=== PATIENT | male | born 1955 | race Caucasian/White ===

== ENCOUNTER 2021-01-11 04:00 | Inpatient (IN) ==
[2021-01-11] MEDS ORDERED: DEXTROSE 50% 25 GM/50 ML VIAL IV PRN (09:00)
[2021-01-11] MEDS ORDERED: GLUCAGON 1 MG VIAL IM PRN (09:00)
[2021-01-12] MEDS ORDERED: VANCOMYCIN INJ 1,000 MG in SODIUM CHLORIDE 0.9% 250 ML IV ONE (05:00)
[2021-01-15] MEDS ORDERED: DEXTROSE 50% 25 GM/50 ML VIAL IV PRN (11:24)
[2021-01-15] MEDS ORDERED: GLUCAGON 1 MG VIAL IM PRN (11:24)
[2021-01-15] MEDS ORDERED: SODIUM CHLORIDE 0.9% 1,000 ML IV SCH (11:27)
[2021-01-15] MEDS ORDERED: NITROGLYCERIN SL 0.4 MG TABLET SL PRN (12:00)
[2021-01-15] MEDS ORDERED: CLORAZEPATE 3.75 MG TABLET PO PRN (12:00)
[2021-01-15] MEDS ORDERED: MORPHINE 2 MG/1 ML SYRINGE IV PRN (12:00)
[2021-01-15] MEDS: CHLORHEXIDINE 0.12% ORAL RINSE 60 ML BOTTLE SWISH/SPIT SCH ×2 (12:14→21:13)
[2021-01-15] MEDS: CHLORHEXIDINE 4% SOLN 118 ML BOTTLE TOP SCH ×4 (12:14→22:32)
[2021-01-15 12:32] LABS: Basophils # 0.1 10*3/uL (0.0-0.2); Basophils % 1.1 % (0.0-0.8); Eosinophils # 0.7 10*3/uL (0.0-0.87); Eosinophils % 7.9 % (0.00-10.9); Hematocrit 33.8 VOL% (42.0-52.0); Hemoglobin 10.7 GM/DL (14.0-18.0); Immature Granulocytes % 0.3 %; Immature Granulocytes Absolute 0.03 #; Lymphocytes # 2.2 10*3/uL (1.4-4.0); Lymphocytes % 23.5 % (21.2-54.2); Mean Corpuscular HGB Conc 31.7 GM/DL (32-36); Monocytes % 11.4 % (1.7-12.7); Neutrophils % 55.8 % (38.7-73.9); Platelet Count 262 T/CUMM (130-400); Red Blood Count 3.52 MC/CUMM (3.8-5.5); Red Cell Distribution Width 13.3 % (9.3-17.3); White Blood Count 9.2 T/CUMM (4-12)
[2021-01-15] MEDS: INSULIN REGULAR 100 UNIT/ML SUBCUT SCH ×3 (12:36→21:12)
[2021-01-15 12:50] LABS: Albumin 2.6 G/DL (3.4-5.0); Bilirubin,Total 0.9 MG/DL (0.20-1.00); Calcium 9.6 MG/DL (8.5-10.1); Osmolality,Calculated 288.5 MOS/KG (273-304); Potassium 4.6 MMOL/L (3.5-5.1); Total Protein 6.4 G/DL (6.4-8.2)
[2021-01-15 14:02] LABS: ABG Base Excess 9.3 MMOL/L (-2.5-2.5); ABG Oxygen Saturation 96.7 % (95-100); ABG PCO2 60.9 MM HG (35-48); ABG PH 7.387 (7.35-7.45); ABG PO2 90.3 MM HG (80-95); ABG TCO2 32.6 MMOL/L (23-27)
[2021-01-15] MEDS: SODIUM CHLORIDE 0.9% 1,000 ML IV SCH ×3 (14:22→16:25)
[2021-01-16] MEDS ORDERED: PAPAVERINE 60 MG/2 ML VIAL ONE (04:56)
[2021-01-16] MEDS ORDERED: VANCOMYCIN 500 MG VIAL ONE (04:57)
[2021-01-16] MEDS ORDERED: VANCOMYCIN 1,000 MG VIAL ONE (04:57)
[2021-01-16] MEDS ORDERED: VANCOMYCIN INJ 1,000 MG in SODIUM CHLORIDE 0.9% 250 ML IV ONE (05:00)
[2021-01-16] MEDS: CHLORHEXIDINE 0.12% ORAL RINSE 60 ML BOTTLE SWISH/SPIT SCH ×3 (05:50→21:37)
[2021-01-16] MEDS ORDERED: DIAZEPAM 5 MG TABLET PO ONE (06:00)
[2021-01-16] MEDS ORDERED: PANTOPRAZOLE 40 MG TABLET PO ONE (06:00)
[2021-01-16] MEDS ORDERED: ETOMIDATE 40 MG/20 ML VIAL IV ONE ×4 (06:05→09:45)
[2021-01-16] MEDS ORDERED: SUCCINYLCHOLINE 200 MG/10 ML VIAL ONE (06:05)
[2021-01-16] MEDS ORDERED: SUFentanil 250 MCG/5 ML AMP ONE ×3 (06:07→06:11)
[2021-01-16] MEDS ORDERED: MIDAZOLAM 10 MG/2 ML VIAL ONE ×4 (06:07→09:18)
[2021-01-16] MEDS ORDERED: VECURONIUM 10 MG VIAL IV ONE ×3 (06:13→09:19)
[2021-01-16 07:48] LABS: ABG Base Excess 7.2 MMOL/L (-2.5-2.5); ABG HCO3 31.1 MMOL/L (20-26); ABG PCO2 46.5 MM HG (35-48); ABG PH 7.448 (7.35-7.45); ABG TCO2 29.4 MMOL/L (23-27); Glucose Heart Surgery 150 MG/DL (74-106); Hematocrit Heart Surgery 29.6 PERCENT (42-52); Hemoglobin Heart Surgery 9.6 G/DL (14.0-18.0); Ionized Calcium Arterial 1.16 MMOL/L (1.21-1.46); PCO2 Patient Temp Arterial 46.5 MMHG; PH Patient Temp Arterial 7.448; Patient Temperature 37 CELCIUS; Potassium Heart/CVR 4.5 MMOL/L (3.5-5.1); Sodium Heart/CVR 141 MMOL/L (135-145)
[2021-01-16] MEDS ORDERED: SODIUM BICARBONATE 50 MEQ/50 ML VIAL IV ONE ×2 (07:59→10:31)
[2021-01-16] MEDS ORDERED: ALBUMIN 5% 25.0 GM/500 ML VIAL IV ONE (07:59)
[2021-01-16] MEDS ORDERED: NITROGLYCERIN DRIP 0 MG/0 ML BOTTLE IV ONE (07:59)
[2021-01-16] MEDS ORDERED: PHENYLEPHRINE DRIP 40 MG/250 ML PREMIX IV ONE (08:00)
[2021-01-16] MEDS ORDERED: NITROPRUSSIDE 50 MG/2 ML VIAL ONE (08:02)
[2021-01-16 08:37] LABS: Hematocrit Heart Surgery 19.6 PERCENT (42-52); PCO2 Patient Temp Venous 39.9 MM HG; PH Patient Temp Venous 7.492; PO2 Patient Temp Venous 31.6 MM HG; Potassium Heart/CVR 4.8 MMOL/L (3.5-5.1); VBG Base Excess 7.1 MEQ/L (0-4); VBG HCO3 30.7 MEQ/L (24-28); VBG Oxygen Saturation 76.1 %; VBG PCO2 46.1 MMHG (41-51); VBG PH 7.448; VBG Total CO2 30.4 MMOL/L
[2021-01-16 08:39] LABS: Hemoglobin Heart Surgery 6.2 G/DL (14.0-18.0)
[2021-01-16 09:09] LABS: Hematocrit Heart Surgery 22.4 PERCENT (42-52); Hemoglobin Heart Surgery 7.2 G/DL (14.0-18.0); PCO2 Patient Temp Venous 38.5 MM HG; PH Patient Temp Venous 7.511; PO2 Patient Temp Venous 31.3 MM HG; Potassium Heart/CVR 4.5 MMOL/L (3.5-5.1); VBG Base Excess 7.6 MEQ/L (0-4); VBG HCO3 31.1 MEQ/L (24-28); VBG PCO2 44.5 MMHG (41-51); VBG PH 7.466; VBG PO2 38.6 MMHG (17-40); VBG Total CO2 30.3 MMOL/L
[2021-01-16] MEDS ORDERED: CALCIUM CHLORIDE 1,000 MG/10 ML VIAL IV ONE (09:18)
[2021-01-16 09:35] LABS: Hematocrit Heart Surgery 23.1 PERCENT (42-52); Hemoglobin Heart Surgery 7.4 G/DL (14.0-18.0); PCO2 Patient Temp Venous 40.6 MM HG; PH Patient Temp Venous 7.481; PO2 Patient Temp Venous 33.6 MM HG; Potassium Heart/CVR 4.7 MMOL/L (3.5-5.1); VBG Base Excess 6.3 MEQ/L (0-4); VBG HCO3 29.8 MEQ/L (24-28); VBG Oxygen Saturation 69.4 %; VBG PCO2 40.6 MMHG (41-51); VBG PH 7.481; VBG PO2 33.6 MMHG (17-40); VBG Total CO2 28.6 MMOL/L
[2021-01-16] MEDS ORDERED: PHENYLEPHRINE DRIP 20 MG/250 ML PREMIX IV ONE ×2 (09:46→10:07)
[2021-01-16] MEDS ORDERED: SODIUM CHLORIDE 0.9% 1,000 ML IV ONE (09:46)
[2021-01-16] MEDS ORDERED: HEPARIN/NACL 0.9% 2 UNITS/ML 1,000 UNIT/500 ML BAG IV ONE (09:46)
[2021-01-16] MEDS ORDERED: LACTATED RINGERS 1,000 ML IV ONE (09:46)
[2021-01-16] MEDS ORDERED: SODIUM CHLORIDE 0.9% 200 ML IV ONE (09:46)
[2021-01-16 10:07] LABS: Hematocrit Heart Surgery 28.6 PERCENT (42-52); Hemoglobin Heart Surgery 9.2 G/DL (14.0-18.0); PCO2 Patient Temp Venous 38.4 MM HG; PH Patient Temp Venous 7.483; PO2 Patient Temp Venous 35.3 MM HG; Potassium Heart/CVR 4.6 MMOL/L (3.5-5.1); VBG Base Excess 5.1 MEQ/L (0-4); VBG HCO3 28.6 MEQ/L (24-28); VBG Oxygen Saturation 73.4 %; VBG PCO2 38.4 MMHG (41-51); VBG PH 7.483; VBG PO2 35.3 MMHG (17-40); VBG Total CO2 26.5 MMOL/L
[2021-01-16] MEDS ORDERED: ALBUMIN 25% 25 GM/100 ML VIAL IV ONE (10:29)
[2021-01-16] MEDS ORDERED: LIDOCAINE 2% 5 ML VIAL ONE (10:29)
[2021-01-16] MEDS ORDERED: HEPARIN 10,000 UNIT/10 ML VIAL ONE (10:30)
[2021-01-16] MEDS ORDERED: methylPREDNISolone SOD SUC 1,000 MG/8 ML VIAL ONE (10:30)
[2021-01-16] MEDS ORDERED: MAGNESIUM SULFATE 5 GM/10 ML VIAL IV ONE (10:30)
[2021-01-16] MEDS ORDERED: MANNITOL 12.5 GM/50 ML VIAL IV ONE (10:30)
[2021-01-16] MEDS ORDERED: DEXTROSE 5% KCL 20 MEQ 20 MEQ/1,000 ML BAG IV ONE (10:30)
[2021-01-16] MEDS ORDERED: PROTAMINE SULFATE 250 MG/25 ML VIAL IV ONE ×2 (10:30→12:00)
[2021-01-16] MEDS ORDERED: FUROSEMIDE 20 MG/2 ML VIAL ONE (10:31)
[2021-01-16 10:40] LABS: ABG Base Excess 3.2 MMOL/L (-2.5-2.5); ABG HCO3 26.4 MMOL/L (20-26); ABG Oxygen Saturation 98.9 % (95-100); ABG PCO2 34.8 MM HG (35-48); ABG PH 7.498 (7.35-7.45); ABG PO2 458.8 MM HG (80-95); ABG TCO2 27.5 MMOL/L (23-27); Glucose Heart Surgery 228 MG/DL (74-106); Hemoglobin Heart Surgery 9.6 G/DL (14.0-18.0); Ionized Calcium Arterial 1.12 MMOL/L (1.21-1.46); PCO2 Patient Temp Arterial 34.8 MMHG; PH Patient Temp Arterial 7.498; PO2 Patient Temp Arterial 458.8 MM HG; Patient Temperature 37 CELCIUS; Potassium Heart/CVR 3.9 MMOL/L (3.5-5.1); Sodium Heart/CVR 133 MMOL/L (135-145)
[2021-01-16] MEDS ORDERED: NITROPRUSSIDE 100 MG in DEXTROSE 5% 250 ML IV PRN (10:58)
[2021-01-16] MEDS ORDERED: MIDAZOLAM 10 MG/2 ML VIAL IV PRN (10:58)
[2021-01-16] MEDS ORDERED: POTASSIUM CHLORIDE RIDER 20 MEQ/100 ML PREMIX IV PRN (10:58)
[2021-01-16] MEDS ORDERED: VECURONIUM 10 MG VIAL IV PRN ×2 (10:58)
[2021-01-16] MEDS ORDERED: CALCIUM CHLORIDE 1,000 MG/10 ML SYRINGE IV PRN (10:58)
[2021-01-16] MEDS ORDERED: THROMBIN TOPICAL (RECOMBINANT) 5,000 UNIT VIAL TOP ONE (10:58)
[2021-01-16] MEDS ORDERED: ACETAMINOPHEN 650 MG SUPP RECTAL PRN (10:58)
[2021-01-16] MEDS ORDERED: MIDAZOLAM 2 MG/2 ML VIAL IV PRN (10:58)
[2021-01-16] MEDS ORDERED: DEXTROSE 50% 25 GM/50 ML VIAL IV PRN ×2 (10:58)
[2021-01-16] MEDS ORDERED: POTASSIUM CHLORIDE RIDER 10 MEQ/100 ML PREMIX IV PRN (10:58)
[2021-01-16] MEDS ORDERED: INSULIN REGULAR 100 UNIT/ML IV ONE (10:58)
[2021-01-16] MEDS ORDERED: MAGNESIUM SULF RIDER 2 GM/50 ML PREMIX IV PRN (10:58)
[2021-01-16] MEDS ORDERED: CHLORHEXIDINE 4% SOLN 118 ML BOTTLE TOP PRN (10:58)
[2021-01-16] MEDS ORDERED: MAGNESIUM SULF RIDER 4 GM/100 ML PREMIX IV PRN (10:58)
[2021-01-16] MEDS: LACTATED RINGERS 250 ML IV PRN ×3 (11:31→14:16)
[2021-01-16] MEDS: PHENYLEPHRINE DRIP 40 MG/250 ML PREMIX IV PRN (11:31)
[2021-01-16] MEDS: SODIUM CHLORIDE 0.45% 1,000 ML IV SCH ×2 (11:31)
[2021-01-16] MEDS ORDERED: PROTAMINE SULFATE 50 MG/5 ML VIAL IV ONE (11:39)
[2021-01-16] MEDS ORDERED: SEVOFLURANE 1 UNIT/15 MINUTE INH ONE (11:43)
[2021-01-16 12:06] LABS: ABG Base Excess 2.7 MMOL/L (-2.5-2.5); ABG HCO3 26.9 MMOL/L (20-26); ABG Oxygen Saturation 98.6 % (95-100); ABG PH 7.394 (7.35-7.45); ABG TCO2 25.7 MMOL/L (23-27); Glucose Heart Surgery 231 MG/DL (74-106); Hematocrit Heart Surgery 29.9 PERCENT (42-52); Hemoglobin Heart Surgery 9.7 G/DL (14.0-18.0)
[2021-01-16 12:07] LABS: Basophils # 0.1 10*3/uL (0.0-0.2); Basophils % 0.5 % (0.0-0.8); Eosinophils # 0.1 10*3/uL (0.0-0.87); Eosinophils % 0.9 % (0.00-10.9); Hematocrit 29.1 VOL% (42.0-52.0); Hemoglobin 9.2 GM/DL (14.0-18.0); Immature Granulocytes % 0.7 %; Lymphocytes # 1.4 10*3/uL (1.4-4.0); Lymphocytes % 9.4 % (21.2-54.2); Mean Corpuscular HGB Conc 31.6 GM/DL (32-36); Mean Corpuscular Volume 93.6 FL (87-102); Monocytes % 7.6 % (1.7-12.7); Neutrophils % 80.9 % (38.7-73.9); Platelet Count 231 T/CUMM (130-400); Red Blood Count 3.11 MC/CUMM (3.8-5.5); Red Cell Distribution Width 14.8 % (9.3-17.3); White Blood Count 15.3 T/CUMM (4-12)
[2021-01-16 12:34] LABS: Atypical Lymphocytes Few; Band Neutrophils 2 % (0-10); Lymphocytes 13 % (20-55); Platelet Estimate Normal; Polychromasia Slight; Segmented Neutrophils 83 % (50-85); Total Cells Counted 100
[2021-01-16 12:35] LABS: CKMB % 6.9 %
[2021-01-16 12:41] LABS: High Sensitive Troponin I* 5628.8 ng/L (0-78)
[2021-01-16 12:45] LABS: INR 1.1; PT Patient Result 11.9 SECS (10.5-12.0); Partial Thromboplastin Time 26.6 SECS (23.8-32.1)
[2021-01-16 12:50] LABS: Albumin 2.3 G/DL (3.4-5.0); Bilirubin,Total 0.7 MG/DL (0.20-1.00); Calcium 8.1 MG/DL (8.5-10.1); Osmolality,Calculated 293.5 MOS/KG (273-304); Potassium 4.1 MMOL/L (3.5-5.1); Total Protein 4.5 G/DL (6.4-8.2)
[2021-01-16] MEDS: INSULIN REGULAR 100 UNIT/ML SUBCUT SCH (12:52)
[2021-01-16] MEDS: INSULIN REGULAR DRIP 100 ML IV SCH ×2 (13:17→20:18)
[2021-01-16 14:31] LABS: ABG Base Excess 3.7 MMOL/L (-2.5-2.5); ABG HCO3 29.4 MMOL/L (20-26); ABG Oxygen Saturation 97.1 % (95-100); ABG PH 7.387 (7.35-7.45); ABG PO2 100.8 MM HG (80-95); ABG TCO2 30.9 MMOL/L (23-27); Glucose Heart Surgery 199 MG/DL (74-106); Hemoglobin Heart Surgery 10.1 G/DL (14.0-18.0); Potassium Heart/CVR 5.2 MMOL/L (3.5-5.1)
[2021-01-16] MEDS ORDERED: FUROSEMIDE 40 MG/4 ML VIAL IV ONE (14:39)
[2021-01-16] MEDS: INSULIN REGULAR 100 UNIT/ML IV PRN ×2 (15:08→18:01)
[2021-01-16] MEDS: SODIUM CHLORIDE 0.9% 250 ML IV PRN ×3 (15:23→18:24)
[2021-01-16 15:48] LABS: ABG HCO3 26.2 MMOL/L (20-26); ABG Oxygen Saturation 98.6 % (95-100); ABG PH 7.413 (7.35-7.45); ABG TCO2 24.4 MMOL/L (23-27); Glucose Heart Surgery 227 MG/DL (74-106); Hematocrit Heart Surgery 30.7 PERCENT (42-52); Hemoglobin Heart Surgery 9.9 G/DL (14.0-18.0); Potassium Heart/CVR 3.9 MMOL/L (3.5-5.1)
[2021-01-16] MEDS: FUROSEMIDE INJ 100 MG in SODIUM CHLORIDE 0.9% 90 ML IV SCH ×2 (16:05→20:19)
[2021-01-16] MEDS: ALBUMIN 5% 12.5 GM/250 ML VIAL IV PRN ×2 (16:28→16:51)
[2021-01-16] MEDS: MORPHINE 10 MG/1 ML VIAL IV PRN (17:35)
[2021-01-16 19:09] LABS: ABG HCO3 25.3 MMOL/L (20-26); ABG Oxygen Saturation 98.3 % (95-100); ABG PCO2 45.4 MM HG (35-48); ABG PH 7.374 (7.35-7.45); ABG TCO2 24.5 MMOL/L (23-27); Glucose Heart Surgery 146 MG/DL (74-106); Hematocrit Heart Surgery 27.3 PERCENT (42-52); Hemoglobin Heart Surgery 8.8 G/DL (14.0-18.0); Potassium Heart/CVR 3.9 MMOL/L (3.5-5.1)
[2021-01-16] MEDS: DEXMEDETOMIDINE 200 MCG in SODIUM CHLORIDE 0.9% 48 ML IV PRN (19:20)
[2021-01-16 19:50] LABS: CKMB % 6.9 %
[2021-01-16 19:54] LABS: High Sensitive Troponin I* 19285.6 ng/L (0-78)
[2021-01-16] MEDS ORDERED: SODIUM CHLORIDE 0.9% 1,000 ML IV PRN (19:54)
[2021-01-16] MEDS: VANCOMYCIN INJ 1,000 MG in SODIUM CHLORIDE 0.9% 250 ML IV SCH (21:38)
[2021-01-17 00:21] LABS: ABG Base Excess 1.6 MMOL/L (-2.5-2.5); ABG HCO3 25.6 MMOL/L (20-26); ABG Oxygen Saturation 97.9 % (95-100); ABG PCO2 37.9 MM HG (35-48); ABG PH 7.448 (7.35-7.45); ABG PO2 115.5 MM HG (80-95); ABG TCO2 26.8 MMOL/L (23-27); Glucose Heart Surgery 81 MG/DL (74-106); Hemoglobin Heart Surgery 10.4 G/DL (14.0-18.0); Potassium Heart/CVR 4.4 MMOL/L (3.5-5.1)
[2021-01-17] MEDS: PHENYLEPHRINE DRIP 40 MG/250 ML PREMIX IV PRN ×2 (00:23→16:24)
[2021-01-17] MEDS: DEXMEDETOMIDINE 200 MCG in SODIUM CHLORIDE 0.9% 48 ML IV PRN ×2 (00:24→11:47)
[2021-01-17 01:13] LABS: ABG Base Excess 1.2 MMOL/L (-2.5-2.5); ABG HCO3 25.9 MMOL/L (20-26); ABG Oxygen Saturation 97.8 % (95-100); ABG PCO2 41.7 MM HG (35-48); ABG PH 7.411 (7.35-7.45); ABG TCO2 27.2 MMOL/L (23-27); Glucose Heart Surgery 93 MG/DL (74-106); Hemoglobin Heart Surgery 10.5 G/DL (14.0-18.0); Potassium Heart/CVR 4.4 MMOL/L (3.5-5.1)
[2021-01-17] MEDS: FUROSEMIDE INJ 100 MG in SODIUM CHLORIDE 0.9% 90 ML IV SCH ×5 (01:51→23:00)
[2021-01-17 04:14] LABS: ABG Base Excess 1.7 MMOL/L (-2.5-2.5); ABG Oxygen Saturation 98.9 % (95-100); ABG PCO2 46.4 MM HG (35-48); ABG PH 7.378 (7.35-7.45); ABG TCO2 24.9 MMOL/L (23-27); Glucose Heart Surgery 115 MG/DL (74-106); Hematocrit Heart Surgery 31.2 PERCENT (42-52); Hemoglobin Heart Surgery 10.1 G/DL (14.0-18.0); Potassium Heart/CVR 4.6 MMOL/L (3.5-5.1)
[2021-01-17 04:15] LABS: Basophils % 0.2 % (0.0-0.8); Hematocrit 31.8 VOL% (42.0-52.0); Hemoglobin 10.3 GM/DL (14.0-18.0); Immature Granulocytes % 0.6 %; Immature Granulocytes Absolute 0.12 #; Lymphocytes # 1.7 10*3/uL (1.4-4.0); Lymphocytes % 8.9 % (21.2-54.2); Mean Corpuscular HGB Conc 32.4 GM/DL (32-36); Mean Corpuscular Volume 92.4 FL (87-102); Mean Platelet Volume 11.1 FL (9.6-12.0); Monocytes % 8.9 % (1.7-12.7); Neutrophils % 81.4 % (38.7-73.9); Platelet Count 223 T/CUMM (130-400); Red Blood Count 3.44 MC/CUMM (3.8-5.5); Red Cell Distribution Width 15.6 % (9.3-17.3); White Blood Count 19.4 T/CUMM (4-12)
[2021-01-17] MEDS: MORPHINE 10 MG/1 ML VIAL IV PRN (04:18)
[2021-01-17 04:36] LABS: Hypochromasia Slight; Lymphocytes 6 % (20-55); Microcytosis Slight; Platelet Estimate Adequate; Segmented Neutrophils 83 % (50-85); Total Cells Counted 100
[2021-01-17 04:56] LABS: CKMB % 7.8 %
[2021-01-17 04:58] LABS: High Sensitive Troponin I* 67427.8 ng/L (0-78)
[2021-01-17 05:03] LABS: Alanine Aminotransferase 116 U/L (16-61); Albumin 2.8 G/DL (3.4-5.0); Alkaline Phosphatase 99 U/L (45-117); Aspartate Amino Transferase 340 U/L (0-37); Bilirubin,Total < 0.39 MG/DL (0.20-1.00); Blood Urea Nitrogen 44 MG/DL (7-18); Calcium 8.2 MG/DL (8.5-10.1); Carbon Dioxide 26 MMOL/L (21-32); Estimated Glom Filtration Rate 38 ML/MIN; Glucose 105 MG/DL (74-106); Osmolality,Calculated 291.3 MOS/KG (273-304); Potassium 4.7 MMOL/L (3.5-5.1); Sodium 141 MMOL/L (136-145); Total Protein 5.1 G/DL (6.4-8.2)
[2021-01-17 06:25] LABS: ABG Base Excess 0.9 MMOL/L (-2.5-2.5); ABG HCO3 25.3 MMOL/L (20-26); ABG Oxygen Saturation 98.5 % (95-100); ABG PCO2 50.6 MM HG (35-48); ABG PH 7.341 (7.35-7.45); ABG TCO2 24.9 MMOL/L (23-27); Glucose Heart Surgery 110 MG/DL (74-106); Hematocrit Heart Surgery 32.4 PERCENT (42-52); Hemoglobin Heart Surgery 10.5 G/DL (14.0-18.0); Potassium Heart/CVR 4.6 MMOL/L (3.5-5.1)
[2021-01-17 07:09] LABS: ABG Base Excess 0.9 MMOL/L (-2.5-2.5); ABG HCO3 25.3 MMOL/L (20-26); ABG PCO2 51.1 MM HG (35-48); ABG PH 7.338 (7.35-7.45); Glucose Heart Surgery 108 MG/DL (74-106); Hematocrit Heart Surgery 31.9 PERCENT (42-52); Hemoglobin Heart Surgery 10.3 G/DL (14.0-18.0); Potassium Heart/CVR 4.5 MMOL/L (3.5-5.1)
[2021-01-17] MEDS ORDERED: ASPIRIN CHEW 81 MG TABLET PO ONE (09:00)
[2021-01-17] MEDS: ALBUTEROL/IPRATROPIUM 3 ML NEB RESP TX SCH ×3 (09:25→19:22)
[2021-01-17] MEDS: GABAPENTIN 600 MG TABLET PO SCH ×2 (10:04→20:38)
[2021-01-17] MEDS: CHLORHEXIDINE 0.12% ORAL RINSE 60 ML BOTTLE SWISH/SPIT SCH ×2 (10:05→20:39)
[2021-01-17] MEDS: VANCOMYCIN INJ 1,000 MG in SODIUM CHLORIDE 0.9% 250 ML IV SCH ×2 (10:11→22:29)
[2021-01-17 11:21] LABS: ABG Base Excess -0.7 MMOL/L (-2.5-2.5); ABG HCO3 25.4 MMOL/L (20-26); ABG Oxygen Saturation 97.6 % (95-100); ABG PCO2 48.5 MM HG (35-48); ABG PH 7.337 (7.35-7.45); ABG PO2 112.2 MM HG (80-95); ABG TCO2 26.9 MMOL/L (23-27); Glucose Heart Surgery 97 MG/DL (74-106); Hemoglobin Heart Surgery 10.5 G/DL (14.0-18.0); Potassium Heart/CVR 4.3 MMOL/L (3.5-5.1)
[2021-01-17] MEDS ORDERED: GLUCAGON 1 MG VIAL IM PRN (11:27)
[2021-01-17 12:03] LABS: CKMB % 7.9 %
[2021-01-17 12:05] LABS: High Sensitive Troponin I* 63987.4 ng/L (0-78)
[2021-01-17 13:13] LABS: ABG Base Excess 0.7 MMOL/L (-2.5-2.5); ABG HCO3 25.1 MMOL/L (20-26); ABG Oxygen Saturation 99.2 % (95-100); ABG PH 7.441 (7.35-7.45); ABG TCO2 22.2 MMOL/L (23-27)
[2021-01-17 14:09] LABS: ABG Base Excess -0.3 MMOL/L (-2.5-2.5); ABG HCO3 24.2 MMOL/L (20-26); ABG Oxygen Saturation 97.8 % (95-100); ABG PCO2 46.1 MM HG (35-48); ABG PH 7.352 (7.35-7.45); ABG TCO2 23.3 MMOL/L (23-27)
[2021-01-17] MEDS: SODIUM CHLORIDE 0.45% 1,000 ML IV SCH ×2 (14:30→16:24)
[2021-01-17] MEDS: INSULIN REGULAR DRIP 100 ML IV SCH (14:32)
[2021-01-17 15:57] LABS: ABG Base Excess -0.3 MMOL/L (-2.5-2.5); ABG HCO3 24.2 MMOL/L (20-26); ABG PCO2 48.8 MM HG (35-48); ABG PH 7.334 (7.35-7.45); ABG PO2 86.4 MM HG (80-95); ABG TCO2 23.9 MMOL/L (23-27); Glucose Heart Surgery 155 MG/DL (74-106); Hematocrit Heart Surgery 29.9 PERCENT (42-52); Hemoglobin Heart Surgery 9.7 G/DL (14.0-18.0); Potassium Heart/CVR 4.5 MMOL/L (3.5-5.1)
[2021-01-17] MEDS: INSULIN LISPRO 100 UNIT/ML SUBCUT SCH ×3 (16:17→21:54)
[2021-01-17 17:20] LABS: ABG Base Excess -0.1 MMOL/L (-2.5-2.5); ABG HCO3 24.3 MMOL/L (20-26); ABG Oxygen Saturation 94.9 % (95-100); ABG PCO2 47.3 MM HG (35-48); ABG PH 7.347 (7.35-7.45); ABG PO2 77.5 MM HG (80-95); ABG TCO2 23.8 MMOL/L (23-27)
[2021-01-17] MEDS ORDERED: MORPHINE 2 MG/1 ML SYRINGE IV PRN ×2 (18:26→18:40)
[2021-01-17 19:35] LABS: ABG Base Excess -0.2 MMOL/L (-2.5-2.5); ABG HCO3 24.2 MMOL/L (20-26); ABG Oxygen Saturation 96.3 % (95-100); ABG PCO2 44.2 MM HG (35-48); ABG PH 7.366 (7.35-7.45); ABG PO2 85.3 MM HG (80-95); ABG TCO2 23.2 MMOL/L (23-27); Glucose Heart Surgery 189 MG/DL (74-106); Hematocrit Heart Surgery 30.2 PERCENT (42-52); Hemoglobin Heart Surgery 9.7 G/DL (14.0-18.0); Potassium Heart/CVR 4.5 MMOL/L (3.5-5.1)
[2021-01-17] MEDS: PREGABALIN 75 MG CAPSULE PO SCH (20:38)
[2021-01-17 23:35] LABS: ABG Base Excess -0.4 MMOL/L (-2.5-2.5); ABG Oxygen Saturation 97.1 % (95-100); ABG PCO2 44.9 MM HG (35-48); ABG PH 7.358 (7.35-7.45); ABG PO2 94.2 MM HG (80-95); ABG TCO2 23.1 MMOL/L (23-27); Glucose Heart Surgery 211 MG/DL (74-106); Hematocrit Heart Surgery 30.2 PERCENT (42-52); Hemoglobin Heart Surgery 9.8 G/DL (14.0-18.0); Potassium Heart/CVR 4.6 MMOL/L (3.5-5.1)
[2021-01-18] MEDS: ALBUTEROL/IPRATROPIUM 3 ML NEB RESP TX SCH ×4 (00:14→18:30)
[2021-01-18] MEDS: INSULIN LISPRO 100 UNIT/ML SUBCUT SCH ×7 (02:11→20:18)
[2021-01-18] MEDS: FUROSEMIDE INJ 100 MG in SODIUM CHLORIDE 0.9% 90 ML IV SCH ×2 (03:45→22:43)
[2021-01-18 04:00] LABS: ABG Base Excess -0.3 MMOL/L (-2.5-2.5); ABG HCO3 24.2 MMOL/L (20-26); ABG Oxygen Saturation 97.4 % (95-100); ABG PCO2 42.1 MM HG (35-48); ABG PH 7.379 (7.35-7.45); ABG PO2 92.8 MM HG (80-95); ABG TCO2 22.8 MMOL/L (23-27); Glucose Heart Surgery 202 MG/DL (74-106); Hematocrit Heart Surgery 29.6 PERCENT (42-52); Hemoglobin Heart Surgery 9.6 G/DL (14.0-18.0); Potassium Heart/CVR 4.6 MMOL/L (3.5-5.1)
[2021-01-18 04:05] LABS: Basophils % 0.3 % (0.0-0.8); Hematocrit 30.2 VOL% (42.0-52.0); Hemoglobin 9.5 GM/DL (14.0-18.0); Immature Granulocytes % 0.3 %; Immature Granulocytes Absolute 0.04 #; Lymphocytes # 1.2 10*3/uL (1.4-4.0); Lymphocytes % 10.1 % (21.2-54.2); Mean Corpuscular HGB Conc 31.5 GM/DL (32-36); Mean Corpuscular Volume 95.3 FL (87-102); Mean Platelet Volume 11.4 FL (9.6-12.0); Monocytes % 9.4 % (1.7-12.7); Neutrophils % 79.9 % (38.7-73.9); Platelet Count 159 T/CUMM (130-400); Red Blood Count 3.17 MC/CUMM (3.8-5.5); Red Cell Distribution Width 15.1 % (9.3-17.3)
[2021-01-18 04:35] LABS: Albumin 2.5 G/DL (3.4-5.0); Bilirubin,Direct 0.12 MG/DL (0.0-0.20); Bilirubin,Total 0.8 MG/DL (0.20-1.00); Calcium 8.2 MG/DL (8.5-10.1); Osmolality,Calculated 300.4 MOS/KG (273-304); Potassium 4.7 MMOL/L (3.5-5.1); Total Protein 5.9 G/DL (6.4-8.2)
[2021-01-18] MEDS: ALBUMIN 5% 12.5 GM/250 ML VIAL IV PRN ×4 (06:15→20:32)
[2021-01-18] MEDS: FUROSEMIDE 40 MG/4 ML VIAL IV SCH ×2 (07:45→17:12)
[2021-01-18] MEDS ORDERED: METOPROLOL SUCCINATE XL 50 MG TABLET PO SCH (09:30)
[2021-01-18] MEDS: GABAPENTIN 600 MG TABLET PO SCH ×3 (09:32→21:17)
[2021-01-18] MEDS: CHLORHEXIDINE 0.12% ORAL RINSE 60 ML BOTTLE SWISH/SPIT SCH ×2 (09:32→20:23)
[2021-01-18] MEDS: ASPIRIN EC 325 MG TABLET PO SCH (11:07)
[2021-01-18] MEDS: VANCOMYCIN INJ 1,000 MG in SODIUM CHLORIDE 0.9% 250 ML IV SCH (11:07)
[2021-01-18] MEDS: SODIUM CHLORIDE 0.45% 1,000 ML IV SCH (12:13)
[2021-01-18 16:31] LABS: ABG Base Excess 0.1 MMOL/L (-2.5-2.5); ABG HCO3 24.4 MMOL/L (20-26); ABG Oxygen Saturation 93.9 % (95-100); ABG PCO2 38.3 MM HG (35-48); ABG PH 7.422 (7.35-7.45); ABG PO2 68.2 MM HG (80-95); ABG TCO2 25.6 MMOL/L (23-27)
[2021-01-18] MEDS ORDERED: traMADol 50 MG TABLET PO PRN (17:13)
[2021-01-18] MEDS ORDERED: ACETAMINOPHEN 325 MG TABLET ONE (18:01)
[2021-01-18] MEDS: ACETAMINOPHEN 325 MG TABLET PO PRN (18:34)
[2021-01-18] MEDS: PHENYLEPHRINE DRIP 40 MG/250 ML PREMIX IV PRN (20:02)
[2021-01-18] MEDS: PREGABALIN 75 MG CAPSULE PO SCH ×2 (20:21→21:17)
[2021-01-18] MEDS ORDERED: ATROPINE 1 MG/10 ML SYRINGE ONE (20:44)
[2021-01-18] MEDS ORDERED: EPINEPHrine 1 MG/ML VIAL ONE (20:50)
[2021-01-18 20:56] LABS: Basophils # 0.1 10*3/uL (0.0-0.2); Basophils % 0.5 % (0.0-0.8); Hematocrit 29.2 VOL% (42.0-52.0); Hemoglobin 8.9 GM/DL (14.0-18.0); Immature Granulocytes % 0.6 %; Immature Granulocytes Absolute 0.06 #; Lymphocytes # 1.1 10*3/uL (1.4-4.0); Lymphocytes % 11.1 % (21.2-54.2); Mean Corpuscular HGB Conc 30.5 GM/DL (32-36); Mean Platelet Volume 11.7 FL (9.6-12.0); Monocytes % 7.9 % (1.7-12.7); Neutrophils % 79.9 % (38.7-73.9); Platelet Count 150 T/CUMM (130-400); Red Blood Count 2.98 MC/CUMM (3.8-5.5); Red Cell Distribution Width 14.6 % (9.3-17.3); White Blood Count 10.2 T/CUMM (4-12)
[2021-01-18 21:12] LABS: ABG Base Excess -4.2 MMOL/L (-2.5-2.5); ABG HCO3 20.9 MMOL/L (20-26); ABG PCO2 32.5 MM HG (35-48); ABG PH 7.395 (7.35-7.45); ABG TCO2 18.2 MMOL/L (23-27)
[2021-01-18 21:18] LABS: Calcium 8.1 MG/DL (8.5-10.1); Osmolality,Calculated 305.5 MOS/KG (273-304); Potassium 4.8 MMOL/L (3.5-5.1)
[2021-01-19] MEDS: ALBUTEROL/IPRATROPIUM 3 ML NEB RESP TX SCH ×4 (00:35→19:42)
[2021-01-19] MEDS: ACETAMINOPHEN 325 MG TABLET PO PRN (03:05)
[2021-01-19] MEDS: FUROSEMIDE INJ 100 MG in SODIUM CHLORIDE 0.9% 90 ML IV SCH ×4 (03:28→19:41)
[2021-01-19 04:04] LABS: Basophils % 0.3 % (0.0-0.8); Eosinophils % 0.1 % (0.00-10.9); Hematocrit 28.2 VOL% (42.0-52.0); Hemoglobin 8.5 GM/DL (14.0-18.0); Immature Granulocytes % 0.7 %; Immature Granulocytes Absolute 0.09 #; Lymphocytes # 1.1 10*3/uL (1.4-4.0); Mean Corpuscular HGB Conc 30.1 GM/DL (32-36); Mean Corpuscular Volume 96.2 FL (87-102); Mean Platelet Volume 11.7 FL (9.6-12.0); Monocytes % 10.5 % (1.7-12.7); Neutrophils % 79.4 % (38.7-73.9); Platelet Count 157 T/CUMM (130-400); Red Blood Count 2.93 MC/CUMM (3.8-5.5); Red Cell Distribution Width 14.5 % (9.3-17.3); White Blood Count 12.2 T/CUMM (4-12)
[2021-01-19 04:26] LABS: Albumin 2.8 G/DL (3.4-5.0); Bilirubin,Direct 0.23 MG/DL (0.0-0.20); Bilirubin,Total 0.5 MG/DL (0.20-1.00); Calcium 8.1 MG/DL (8.5-10.1); Osmolality,Calculated 302.8 MOS/KG (273-304); Potassium 4.5 MMOL/L (3.5-5.1); Total Protein 5.9 G/DL (6.4-8.2)
[2021-01-19] MEDS: FUROSEMIDE 40 MG/4 ML VIAL IV SCH (08:38)
[2021-01-19] MEDS: ONDANSETRON 4 MG/2 ML VIAL IV PRN (09:05)
[2021-01-19] MEDS: INSULIN LISPRO 100 UNIT/ML SUBCUT SCH ×4 (09:13→21:11)
[2021-01-19] MEDS: ASPIRIN EC 325 MG TABLET PO SCH (09:13)
[2021-01-19] MEDS: GABAPENTIN 600 MG TABLET PO SCH ×2 (09:14→20:16)
[2021-01-19] MEDS: CHLORHEXIDINE 0.12% ORAL RINSE 60 ML BOTTLE SWISH/SPIT SCH ×2 (09:14→20:16)
[2021-01-19] MEDS ORDERED: PROMETHAZINE 25 MG/1 ML VIAL IM ONE (12:08)
[2021-01-19] MEDS ORDERED: METOCLOPRAMIDE 10 MG/2 ML VIAL IV ONE (12:08)
[2021-01-19] MEDS: SODIUM CHLORIDE 0.45% 1,000 ML IV SCH (14:16)
[2021-01-19] MEDS ORDERED: AMIODARONE INJ 150 MG in DEXTROSE 5% 100 ML IV ONE (22:08)
[2021-01-19] MEDS ORDERED: AMIODARONE INJ 450 MG in DEXTROSE 5% 241 ML IV SCH (22:30)
[2021-01-20] MEDS: ACETAMINOPHEN 325 MG TABLET PO PRN ×4 (00:27→21:42)
[2021-01-20] MEDS: ALBUTEROL/IPRATROPIUM 3 ML NEB RESP TX SCH ×4 (00:41→19:20)
[2021-01-20] MEDS: FUROSEMIDE INJ 100 MG in SODIUM CHLORIDE 0.9% 90 ML IV SCH ×4 (00:43→21:43)
[2021-01-20 03:02] LABS: Basophils % 0.3 % (0.0-0.8); Eosinophils % 0.2 % (0.00-10.9); Hematocrit 28.6 VOL% (42.0-52.0); Hemoglobin 8.6 GM/DL (14.0-18.0); Immature Granulocytes % 0.4 %; Immature Granulocytes Absolute 0.05 #; Lymphocytes # 1.1 10*3/uL (1.4-4.0); Lymphocytes % 9.6 % (21.2-54.2); Mean Corpuscular HGB Conc 30.1 GM/DL (32-36); Mean Corpuscular Volume 96.6 FL (87-102); Mean Platelet Volume 11.7 FL (9.6-12.0); Monocytes % 11.4 % (1.7-12.7); Neutrophils % 78.1 % (38.7-73.9); Platelet Count 173 T/CUMM (130-400); Red Blood Count 2.96 MC/CUMM (3.8-5.5); White Blood Count 11.7 T/CUMM (4-12)
[2021-01-20 03:20] LABS: Calcium 8.3 MG/DL (8.5-10.1); Osmolality,Calculated 304.8 MOS/KG (273-304); Potassium 4.3 MMOL/L (3.5-5.1)
[2021-01-20] MEDS: AMIODARONE INJ 450 MG in DEXTROSE 5% 241 ML IV SCH ×2 (06:22→23:13)
[2021-01-20] MEDS: INSULIN LISPRO 100 UNIT/ML SUBCUT SCH ×4 (08:30→20:13)
[2021-01-20] MEDS: GABAPENTIN 600 MG TABLET PO SCH ×2 (08:42→20:13)
[2021-01-20] MEDS: ASPIRIN EC 325 MG TABLET PO SCH (08:42)
[2021-01-20] MEDS: CHLORHEXIDINE 0.12% ORAL RINSE 60 ML BOTTLE SWISH/SPIT SCH ×2 (08:42→20:13)
[2021-01-20] MEDS ORDERED: ALBUMIN 5% 25 GM/500 ML VIAL IV ONE (11:37)
[2021-01-20] MEDS: ONDANSETRON 4 MG/2 ML VIAL IV PRN (12:00)
[2021-01-20] MEDS: PHENYLEPHRINE DRIP 40 MG/250 ML PREMIX IV PRN (12:10)
[2021-01-20] MEDS: SODIUM CHLORIDE 0.45% 1,000 ML IV SCH (12:56)
[2021-01-20] MEDS ORDERED: EPINEPHrine 1 MG/10 ML SYRINGE ONE (19:09)
[2021-01-20] MEDS: APIXABAN 5 MG TABLET PO SCH (20:13)
[2021-01-21] MEDS: ALBUTEROL/IPRATROPIUM 3 ML NEB RESP TX SCH ×4 (01:01→20:06)
[2021-01-21] MEDS: ACETAMINOPHEN 325 MG TABLET PO PRN ×2 (03:39→16:37)
[2021-01-21 04:02] LABS: Basophils # 0.1 10*3/uL (0.0-0.2); Basophils % 0.6 % (0.0-0.8); Eosinophils # 0.2 10*3/uL (0.0-0.87); Eosinophils % 1.4 % (0.00-10.9); Hematocrit 28.6 VOL% (42.0-52.0); Hemoglobin 8.6 GM/DL (14.0-18.0); Immature Granulocytes % 0.6 %; Immature Granulocytes Absolute 0.07 #; Lymphocytes % 16.5 % (21.2-54.2); Mean Corpuscular HGB Conc 30.1 GM/DL (32-36); Mean Corpuscular Volume 96.9 FL (87-102); Mean Platelet Volume 12.1 FL (9.6-12.0); Monocytes % 12.7 % (1.7-12.7); NRBC # 0.02 10*3/uL; Neutrophils % 68.2 % (38.7-73.9); Platelet Count 208 T/CUMM (130-400); Red Blood Count 2.95 MC/CUMM (3.8-5.5); White Blood Count 12.3 T/CUMM (4-12)
[2021-01-21 04:21] LABS: Calcium 8.5 MG/DL (8.5-10.1); Osmolality,Calculated 302.1 MOS/KG (273-304); Potassium 4.3 MMOL/L (3.5-5.1)
[2021-01-21] MEDS: FUROSEMIDE INJ 100 MG in SODIUM CHLORIDE 0.9% 90 ML IV SCH ×2 (07:24→16:45)
[2021-01-21] MEDS: GABAPENTIN 600 MG TABLET PO SCH ×2 (08:55→20:28)
[2021-01-21] MEDS: APIXABAN 5 MG TABLET PO SCH ×2 (08:55→20:28)
[2021-01-21] MEDS: ASPIRIN EC 81 MG TABLET PO SCH (08:56)
[2021-01-21] MEDS: INSULIN LISPRO 100 UNIT/ML SUBCUT SCH ×4 (08:56→20:29)
[2021-01-21] MEDS: INSULIN GLARGINE 100 UNIT/ML SUBCUT SCH (08:57)
[2021-01-21] MEDS: CHLORHEXIDINE 0.12% ORAL RINSE 60 ML BOTTLE SWISH/SPIT SCH ×2 (08:58→20:29)
[2021-01-21] MEDS: SODIUM CHLORIDE 0.45% 1,000 ML IV SCH (09:58)
[2021-01-21] MEDS: AMIODARONE INJ 450 MG in DEXTROSE 5% 241 ML IV SCH (14:33)
[2021-01-21] MEDS: METOPROLOL TARTRATE 25 MG TABLET PO SCH (20:28)
[2021-01-22] MEDS: ALBUTEROL/IPRATROPIUM 3 ML NEB RESP TX SCH ×4 (00:55→18:19)
[2021-01-22] MEDS: ACETAMINOPHEN 325 MG TABLET PO PRN (01:46)
[2021-01-22] MEDS: FUROSEMIDE INJ 100 MG in SODIUM CHLORIDE 0.9% 90 ML IV SCH ×3 (02:35→21:10)
[2021-01-22 03:55] LABS: Basophils # 0.1 10*3/uL (0.0-0.2); Basophils % 0.6 % (0.0-0.8); Eosinophils # 0.1 10*3/uL (0.0-0.87); Eosinophils % 0.9 % (0.00-10.9); Hematocrit 28.1 VOL% (42.0-52.0); Hemoglobin 8.7 GM/DL (14.0-18.0); Immature Granulocytes Absolute 0.14 #; Lymphocytes # 1.8 10*3/uL (1.4-4.0); Lymphocytes % 12.5 % (21.2-54.2); Mean Corpuscular Volume 95.6 FL (87-102); Mean Platelet Volume 11.7 FL (9.6-12.0); Monocytes % 10.4 % (1.7-12.7); NRBC # 0.05 10*3/uL; Neutrophils % 74.6 % (38.7-73.9); Platelet Count 241 T/CUMM (130-400); Red Blood Count 2.94 MC/CUMM (3.8-5.5); Red Cell Distribution Width 14.3 % (9.3-17.3); White Blood Count 14.5 T/CUMM (4-12)
[2021-01-22 04:13] LABS: Albumin 2.5 G/DL (3.4-5.0); Bilirubin,Total 0.6 MG/DL (0.20-1.00); Calcium 8.5 MG/DL (8.5-10.1); Osmolality,Calculated 299.2 MOS/KG (273-304); Potassium 4.7 MMOL/L (3.5-5.1); Total Protein 6.1 G/DL (6.4-8.2)
[2021-01-22] MEDS: AMIODARONE INJ 450 MG in DEXTROSE 5% 241 ML IV SCH ×2 (06:21→06:26)
[2021-01-22 07:25] LABS: Calcium 8.5 MG/DL (8.5-10.1); Osmolality,Calculated 299.4 MOS/KG (273-304); Potassium 4.7 MMOL/L (3.5-5.1)
[2021-01-22] MEDS ORDERED: MIDAZOLAM 2 MG/2 ML VIAL ONE (07:33)
[2021-01-22] MEDS ORDERED: MIDAZOLAM 2 MG/2 ML VIAL IV ONE (07:40)
[2021-01-22] MEDS ORDERED: fentaNYL 100 MCG/2 ML VIAL IV ONE ×2 (08:00)
[2021-01-22] MEDS ORDERED: AMIODARONE 200 MG TABLET PO SCH (09:00)
[2021-01-22] MEDS: INSULIN GLARGINE 100 UNIT/ML SUBCUT SCH (09:04)
[2021-01-22] MEDS: INSULIN LISPRO 100 UNIT/ML SUBCUT SCH ×4 (09:04→21:03)
[2021-01-22] MEDS: MIDODRINE 5 MG TABLET PO SCH ×3 (09:05→16:53)
[2021-01-22] MEDS: GABAPENTIN 600 MG TABLET PO SCH ×2 (09:05→21:03)
[2021-01-22] MEDS: ASPIRIN EC 81 MG TABLET PO SCH (09:05)
[2021-01-22] MEDS: METOPROLOL TARTRATE 25 MG TABLET PO SCH ×2 (09:05→21:03)
[2021-01-22] MEDS: APIXABAN 5 MG TABLET PO SCH ×2 (09:05→21:03)
[2021-01-22] MEDS: CHLORHEXIDINE 0.12% ORAL RINSE 60 ML BOTTLE SWISH/SPIT SCH ×2 (09:06→21:03)
[2021-01-22] MEDS: SODIUM CHLORIDE 0.45% 1,000 ML IV SCH (11:14)
[2021-01-22] MEDS: ASCORBIC ACID 500 MG TABLET PO SCH ×2 (12:23→21:03)
[2021-01-22] MEDS: ONDANSETRON 4 MG/2 ML VIAL IV PRN (22:18)
[2021-01-23] MEDS ORDERED: ALUMINUM/MAGNES/SIMETH MAX STR 30 ML UDCUP PO PRN (00:02)
[2021-01-23] MEDS: ALBUTEROL/IPRATROPIUM 3 ML NEB RESP TX SCH ×4 (01:22→18:47)
[2021-01-23 03:57] LABS: Basophils # 0.1 10*3/uL (0.0-0.2); Basophils % 0.6 % (0.0-0.8); Eosinophils # 0.2 10*3/uL (0.0-0.87); Eosinophils % 1.1 % (0.00-10.9); Hematocrit 29.3 VOL% (42.0-52.0); Hemoglobin 9.1 GM/DL (14.0-18.0); Immature Granulocytes % 1.4 %; Immature Granulocytes Absolute 0.23 #; Lymphocytes # 2.4 10*3/uL (1.4-4.0); Lymphocytes % 14.6 % (21.2-54.2); Mean Corpuscular HGB Conc 31.1 GM/DL (32-36); Mean Corpuscular Volume 96.1 FL (87-102); Mean Platelet Volume 11.6 FL (9.6-12.0); Monocytes % 8.9 % (1.7-12.7); NRBC # 0.12 10*3/uL; Neutrophils % 73.4 % (38.7-73.9); Platelet Count 306 T/CUMM (130-400); Red Blood Count 3.05 MC/CUMM (3.8-5.5); Red Cell Distribution Width 14.5 % (9.3-17.3); White Blood Count 16.3 T/CUMM (4-12)
[2021-01-23 04:12] LABS: Calcium 8.8 MG/DL (8.5-10.1); Osmolality,Calculated 299.4 MOS/KG (273-304); Potassium 4.8 MMOL/L (3.5-5.1)
[2021-01-23 04:24] LABS: Hypochromasia 1+; Microcytosis 1+; Platelet Estimate Adequate
[2021-01-23] MEDS: FUROSEMIDE INJ 100 MG in SODIUM CHLORIDE 0.9% 90 ML IV SCH (07:15)
[2021-01-23] MEDS: INSULIN LISPRO 100 UNIT/ML SUBCUT SCH ×4 (08:36→21:08)
[2021-01-23] MEDS: INSULIN GLARGINE 100 UNIT/ML SUBCUT SCH (08:37)
[2021-01-23] MEDS ORDERED: FUROSEMIDE 40 MG/4 ML VIAL IV SCH (10:00)
[2021-01-23] MEDS ORDERED: SODIUM CHLORIDE 0.9% 1,000 ML IV SCH ×2 (10:30→12:30)
[2021-01-23] MEDS: ASPIRIN EC 81 MG TABLET PO SCH (10:43)
[2021-01-23] MEDS: PANTOPRAZOLE 40 MG TABLET PO SCH ×2 (10:44→21:05)
[2021-01-23] MEDS: CHLORHEXIDINE 0.12% ORAL RINSE 60 ML BOTTLE SWISH/SPIT SCH ×2 (10:44→21:09)
[2021-01-23] MEDS: APIXABAN 5 MG TABLET PO SCH ×2 (10:44→21:06)
[2021-01-23] MEDS: ASCORBIC ACID 500 MG TABLET PO SCH ×2 (10:44→21:06)
[2021-01-23] MEDS: GABAPENTIN 600 MG TABLET PO SCH ×2 (10:45→21:05)
[2021-01-23] MEDS: AMIODARONE 200 MG TABLET PO SCH (10:45)
[2021-01-23] MEDS: METOPROLOL TARTRATE 25 MG TABLET PO SCH ×2 (10:45→21:34)
[2021-01-23] MEDS ORDERED: POLYETHYLENE GLYCOL POWDER 17 GM PACK PO PRN (14:09)
[2021-01-23] MEDS: MIDODRINE 2.5 MG TABLET PO SCH ×3 (15:56→21:06)
[2021-01-23] MEDS: MAGNESIUM HYDROXIDE SUSP 30 ML UDCUP PO PRN (17:22)
[2021-01-23] MEDS: DULoxetine 30 MG CAPSULE PO SCH (21:06)
[2021-01-23] MEDS: ACETAMINOPHEN 325 MG TABLET PO PRN (21:07)
[2021-01-24] MEDS: ALBUTEROL/IPRATROPIUM 3 ML NEB RESP TX SCH ×4 (01:26→19:30)
[2021-01-24] MEDS: MIDODRINE 2.5 MG TABLET PO SCH ×6 (02:59→20:51)
[2021-01-24 03:51] LABS: Basophils # 0.1 10*3/uL (0.0-0.2); Basophils % 0.5 % (0.0-0.8); Eosinophils # 0.1 10*3/uL (0.0-0.87); Eosinophils % 0.4 % (0.00-10.9); Hemoglobin 8.8 GM/DL (14.0-18.0); Immature Granulocytes % 1.2 %; Immature Granulocytes Absolute 0.18 #; Lymphocytes # 1.7 10*3/uL (1.4-4.0); Lymphocytes % 10.6 % (21.2-54.2); Mean Corpuscular HGB Conc 30.3 GM/DL (32-36); Mean Corpuscular Volume 97.3 FL (87-102); Mean Platelet Volume 11.1 FL (9.6-12.0); Monocytes % 7.2 % (1.7-12.7); NRBC # 0.08 10*3/uL; Neutrophils % 80.1 % (38.7-73.9); Platelet Count 363 T/CUMM (130-400); Red Blood Count 2.98 MC/CUMM (3.8-5.5); Red Cell Distribution Width 14.8 % (9.3-17.3); White Blood Count 15.6 T/CUMM (4-12)
[2021-01-24 04:04] LABS: Calcium 8.9 MG/DL (8.5-10.1); Osmolality,Calculated 309.1 MOS/KG (273-304)
[2021-01-24] MEDS: INSULIN LISPRO 100 UNIT/ML SUBCUT SCH ×4 (08:37→20:51)
[2021-01-24] MEDS: MAGNESIUM HYDROXIDE SUSP 30 ML UDCUP PO PRN (08:37)
[2021-01-24] MEDS: INSULIN GLARGINE 100 UNIT/ML SUBCUT SCH (08:37)
[2021-01-24] MEDS: CHLORHEXIDINE 0.12% ORAL RINSE 60 ML BOTTLE SWISH/SPIT SCH ×2 (08:38→20:51)
[2021-01-24] MEDS: GABAPENTIN 600 MG TABLET PO SCH ×2 (08:38→23:16)
[2021-01-24] MEDS: PANTOPRAZOLE 40 MG TABLET PO SCH ×2 (08:38→20:51)
[2021-01-24] MEDS: METOPROLOL TARTRATE 25 MG TABLET PO SCH ×2 (08:38→20:49)
[2021-01-24] MEDS: APIXABAN 5 MG TABLET PO SCH ×2 (08:38→20:51)
[2021-01-24] MEDS: ASPIRIN EC 81 MG TABLET PO SCH (08:38)
[2021-01-24] MEDS: AMIODARONE 200 MG TABLET PO SCH (08:38)
[2021-01-24] MEDS: ASCORBIC ACID 500 MG TABLET PO SCH ×2 (08:38→20:50)
[2021-01-24] MEDS: ACETAMINOPHEN 325 MG TABLET PO PRN (09:50)
[2021-01-24] MEDS ORDERED: SODIUM CHLORIDE 0.9% 1,000 ML IV SCH (11:00)
[2021-01-24] MEDS ORDERED: SODIUM CHLORIDE 0.9% 250 ML IV ONE (16:05)
[2021-01-24] MEDS: SODIUM CHLORIDE 0.9% 1,000 ML IV SCH (19:00)
[2021-01-24] MEDS: DULoxetine 30 MG CAPSULE PO SCH (20:50)
[2021-01-25] MEDS: ALBUTEROL/IPRATROPIUM 3 ML NEB RESP TX SCH ×4 (00:47→19:30)
[2021-01-25] MEDS: MIDODRINE 2.5 MG TABLET PO SCH ×6 (02:37→21:08)
[2021-01-25 06:03] LABS: Basophils # 0.1 10*3/uL (0.0-0.2); Basophils % 0.4 % (0.0-0.8); Eosinophils # 0.1 10*3/uL (0.0-0.87); Eosinophils % 0.7 % (0.00-10.9); Hematocrit 27.9 VOL% (42.0-52.0); Hemoglobin 8.6 GM/DL (14.0-18.0); Immature Granulocytes % 1.2 %; Immature Granulocytes Absolute 0.16 #; Lymphocytes # 1.5 10*3/uL (1.4-4.0); Lymphocytes % 10.9 % (21.2-54.2); Mean Corpuscular HGB Conc 30.8 GM/DL (32-36); Mean Corpuscular Volume 98.9 FL (87-102); Mean Platelet Volume 11.3 FL (9.6-12.0); Monocytes % 6.8 % (1.7-12.7); NRBC # 0.16 10*3/uL; Platelet Count 367 T/CUMM (130-400); Red Blood Count 2.82 MC/CUMM (3.8-5.5); Red Cell Distribution Width 15.2 % (9.3-17.3); White Blood Count 13.6 T/CUMM (4-12)
[2021-01-25 06:26] LABS: Calcium 8.8 MG/DL (8.5-10.1); Osmolality,Calculated 306.4 MOS/KG (273-304); Potassium 5.8 MMOL/L (3.5-5.1)
[2021-01-25 06:30] LABS: Albumin 2.2 G/DL (3.4-5.0); Bilirubin,Direct 0.18 MG/DL (0.0-0.20); Bilirubin,Indirect 0.5 MG/DL (0.0-1.0); Bilirubin,Total 0.7 MG/DL (0.20-1.00); Total Protein 5.7 G/DL (6.4-8.2)
[2021-01-25] MEDS: SODIUM CHLORIDE 0.9% 1,000 ML IV SCH (07:12)
[2021-01-25] MEDS: APIXABAN 5 MG TABLET PO SCH ×2 (08:34→20:46)
[2021-01-25] MEDS: INSULIN GLARGINE 100 UNIT/ML SUBCUT SCH (08:34)
[2021-01-25] MEDS: INSULIN LISPRO 100 UNIT/ML SUBCUT SCH ×4 (08:34→20:46)
[2021-01-25] MEDS: PANTOPRAZOLE 40 MG TABLET PO SCH ×2 (08:35→20:46)
[2021-01-25] MEDS: ASCORBIC ACID 500 MG TABLET PO SCH ×2 (08:35→20:45)
[2021-01-25] MEDS: GABAPENTIN 600 MG TABLET PO SCH ×2 (08:35→20:45)
[2021-01-25] MEDS: AMIODARONE 200 MG TABLET PO SCH (08:35)
[2021-01-25] MEDS: ASPIRIN EC 81 MG TABLET PO SCH (08:35)
[2021-01-25] MEDS: CHLORHEXIDINE 0.12% ORAL RINSE 60 ML BOTTLE SWISH/SPIT SCH ×2 (08:39→20:46)
[2021-01-25] MEDS: METOPROLOL TARTRATE 25 MG TABLET PO SCH (09:41)
[2021-01-25] MEDS ORDERED: SODIUM POLYSTYRENE SULFATE 15 GM/60 ML BOTTLE PO ONE (11:39)
[2021-01-25] MEDS: DOBUTamine 500 MG/250 ML PREMIX IV SCH (15:02)
[2021-01-25 18:33] LABS: Calcium 8.7 MG/DL (8.5-10.1); Osmolality,Calculated 307.4 MOS/KG (273-304); Potassium 5.4 MMOL/L (3.5-5.1)
[2021-01-25] MEDS: DULoxetine 30 MG CAPSULE PO SCH (20:46)
[2021-01-25] MEDS ORDERED: AMIODARONE 200 MG TABLET PO SCH (21:00)
[2021-01-26] MEDS: ALBUTEROL/IPRATROPIUM 3 ML NEB RESP TX SCH ×4 (00:10→19:50)
[2021-01-26] MEDS: MIDODRINE 2.5 MG TABLET PO SCH ×5 (03:00→18:32)
[2021-01-26 04:35] LABS: Basophils # 0.1 10*3/uL (0.0-0.2); Basophils % 0.4 % (0.0-0.8); Eosinophils # 0.1 10*3/uL (0.0-0.87); Eosinophils % 0.4 % (0.00-10.9); Hematocrit 25.6 VOL% (42.0-52.0); Hemoglobin 7.9 GM/DL (14.0-18.0); Immature Granulocytes Absolute 0.13 #; Lymphocytes # 1.3 10*3/uL (1.4-4.0); Lymphocytes % 9.6 % (21.2-54.2); Mean Corpuscular HGB Conc 30.9 GM/DL (32-36); Mean Platelet Volume 11.1 FL (9.6-12.0); Monocytes % 5.1 % (1.7-12.7); Neutrophils % 83.5 % (38.7-73.9); Platelet Count 355 T/CUMM (130-400); Red Blood Count 2.64 MC/CUMM (3.8-5.5); Red Cell Distribution Width 15.6 % (9.3-17.3)
[2021-01-26 04:49] LABS: Calcium 8.6 MG/DL (8.5-10.1); Osmolality,Calculated 312.2 MOS/KG (273-304); Potassium 5.2 MMOL/L (3.5-5.1)
[2021-01-26] MEDS: oxyCODONE/ACETAMINOPHEN 5-325 MG TABLET PO PRN ×2 (05:50→17:07)
[2021-01-26] MEDS ORDERED: SODIUM CHLORIDE 0.9% 1,000 ML IV PRN (06:14)
[2021-01-26] MEDS: SODIUM CHLORIDE 0.9% 1,000 ML IV SCH ×3 (06:15→21:10)
[2021-01-26] MEDS: INSULIN LISPRO 100 UNIT/ML SUBCUT SCH ×4 (07:28→20:45)
[2021-01-26] MEDS: GABAPENTIN 600 MG TABLET PO SCH ×2 (09:13→21:13)
[2021-01-26] MEDS: INSULIN GLARGINE 100 UNIT/ML SUBCUT SCH (09:13)
[2021-01-26] MEDS: AMIODARONE 200 MG TABLET PO SCH (09:14)
[2021-01-26] MEDS: APIXABAN 5 MG TABLET PO SCH ×2 (09:14→21:13)
[2021-01-26] MEDS: PANTOPRAZOLE 40 MG TABLET PO SCH ×2 (09:14→21:13)
[2021-01-26] MEDS: ASPIRIN EC 81 MG TABLET PO SCH (09:14)
[2021-01-26] MEDS: ASCORBIC ACID 500 MG TABLET PO SCH ×2 (09:14→21:14)
[2021-01-26] MEDS: CHLORHEXIDINE 0.12% ORAL RINSE 60 ML BOTTLE SWISH/SPIT SCH ×2 (09:15→21:13)
[2021-01-26] MEDS: DOBUTamine 500 MG/250 ML PREMIX IV SCH ×2 (14:45→21:13)
[2021-01-26] MEDS: DULoxetine 30 MG CAPSULE PO SCH (21:13)
[2021-01-26] MEDS: MIDODRINE 5 MG TABLET PO SCH (21:14)
[2021-01-27] MEDS: ALBUTEROL/IPRATROPIUM 3 ML NEB RESP TX SCH ×4 (00:35→18:36)
[2021-01-27] MEDS: SODIUM CHLORIDE 0.9% 1,000 ML IV SCH ×2 (02:00→10:13)
[2021-01-27] MEDS: MIDODRINE 5 MG TABLET PO SCH ×6 (02:19→21:27)
[2021-01-27] MEDS: oxyCODONE/ACETAMINOPHEN 5-325 MG TABLET PO PRN ×2 (02:20→11:50)
[2021-01-27 03:33] LABS: Basophils % 0.2 % (0.0-0.8); Eosinophils % 0.3 % (0.00-10.9); Hematocrit 27.4 VOL% (42.0-52.0); Hemoglobin 8.4 GM/DL (14.0-18.0); Immature Granulocytes % 0.9 %; Immature Granulocytes Absolute 0.11 #; Lymphocytes % 8.2 % (21.2-54.2); Mean Corpuscular HGB Conc 30.7 GM/DL (32-36); Mean Corpuscular Volume 95.5 FL (87-102); Mean Platelet Volume 10.8 FL (9.6-12.0); Monocytes % 5.2 % (1.7-12.7); Neutrophils % 85.2 % (38.7-73.9); Platelet Count 334 T/CUMM (130-400); Red Blood Count 2.87 MC/CUMM (3.8-5.5); Red Cell Distribution Width 16.5 % (9.3-17.3); White Blood Count 11.6 T/CUMM (4-12)
[2021-01-27 03:55] LABS: Calcium 8.6 MG/DL (8.5-10.1); Osmolality,Calculated 309.8 MOS/KG (273-304); Potassium 5.3 MMOL/L (3.5-5.1)
[2021-01-27] MEDS: INSULIN LISPRO 100 UNIT/ML SUBCUT SCH ×4 (07:57→21:27)
[2021-01-27] MEDS: SODIUM CHLORIDE 0.9% 250 ML IV PRN ×2 (09:15→13:10)
[2021-01-27] MEDS: PANTOPRAZOLE 40 MG TABLET PO SCH ×2 (09:25→21:27)
[2021-01-27] MEDS: APIXABAN 5 MG TABLET PO SCH ×2 (09:25→21:27)
[2021-01-27] MEDS: GABAPENTIN 600 MG TABLET PO SCH ×2 (09:25→21:27)
[2021-01-27] MEDS: AMIODARONE 200 MG TABLET PO SCH (09:26)
[2021-01-27] MEDS: INSULIN GLARGINE 100 UNIT/ML SUBCUT SCH (09:26)
[2021-01-27] MEDS: CHLORHEXIDINE 0.12% ORAL RINSE 60 ML BOTTLE SWISH/SPIT SCH ×2 (09:26→21:27)
[2021-01-27] MEDS: ASPIRIN EC 81 MG TABLET PO SCH (09:26)
[2021-01-27] MEDS: ASCORBIC ACID 500 MG TABLET PO SCH ×2 (09:31→21:27)
[2021-01-27] MEDS: DOBUTamine 500 MG/250 ML PREMIX IV SCH (21:00)
[2021-01-27] MEDS: DULoxetine 30 MG CAPSULE PO SCH (21:27)
[2021-01-28] MEDS: ALBUTEROL/IPRATROPIUM 3 ML NEB RESP TX SCH ×4 (01:27→20:20)
[2021-01-28] MEDS: SODIUM CHLORIDE 0.9% 1,000 ML IV SCH ×3 (01:30→15:19)
[2021-01-28] MEDS: MIDODRINE 5 MG TABLET PO SCH ×6 (03:17→21:10)
[2021-01-28 04:34] LABS: Basophils % 0.2 % (0.0-0.8); Eosinophils % 0.3 % (0.00-10.9); Hematocrit 28.3 VOL% (42.0-52.0); Hemoglobin 8.5 GM/DL (14.0-18.0); Immature Granulocytes % 0.9 %; Immature Granulocytes Absolute 0.12 #; Lymphocytes # 0.9 10*3/uL (1.4-4.0); Lymphocytes % 6.8 % (21.2-54.2); Mean Corpuscular Volume 96.3 FL (87-102); Monocytes % 3.6 % (1.7-12.7); Neutrophils % 88.2 % (38.7-73.9); Platelet Count 361 T/CUMM (130-400); Red Blood Count 2.94 MC/CUMM (3.8-5.5); Red Cell Distribution Width 16.1 % (9.3-17.3); White Blood Count 12.9 T/CUMM (4-12)
[2021-01-28 05:02] LABS: Calcium 8.7 MG/DL (8.5-10.1); Osmolality,Calculated 318.4 MOS/KG (273-304); Potassium 5.5 MMOL/L (3.5-5.1)
[2021-01-28] MEDS: DOBUTamine 500 MG/250 ML PREMIX IV SCH ×2 (06:10→21:00)
[2021-01-28] MEDS ORDERED: FUROSEMIDE 40 MG/4 ML VIAL IV ONE (07:15)
[2021-01-28] MEDS: INSULIN LISPRO 100 UNIT/ML SUBCUT SCH ×4 (07:57→21:09)
[2021-01-28] MEDS: ASCORBIC ACID 500 MG TABLET PO SCH ×2 (09:41→21:10)
[2021-01-28] MEDS: PANTOPRAZOLE 40 MG TABLET PO SCH ×2 (09:41→21:09)
[2021-01-28] MEDS: ASPIRIN EC 81 MG TABLET PO SCH (09:41)
[2021-01-28] MEDS: GABAPENTIN 600 MG TABLET PO SCH ×2 (09:41→21:09)
[2021-01-28] MEDS: APIXABAN 5 MG TABLET PO SCH ×2 (09:41→21:08)
[2021-01-28] MEDS: AMIODARONE 200 MG TABLET PO SCH (09:41)
[2021-01-28] MEDS: INSULIN GLARGINE 100 UNIT/ML SUBCUT SCH (09:42)
[2021-01-28] MEDS: CHLORHEXIDINE 0.12% ORAL RINSE 60 ML BOTTLE SWISH/SPIT SCH ×2 (09:46→21:09)
[2021-01-28 11:46] LABS: Hepatitis B Core IgM Quant 0.11 Index; Hepatitis B Surface Ag Quant < 0.10 Index; Hepatitis B Surface Ag Result Non-Reactive (NonReactive); Hepatitis C Virus Ab Quant 0.05 Index; Hepatitis C Virus Ab Result Non-Reactive (NonReactive)
[2021-01-28] MEDS: ONDANSETRON 4 MG/2 ML VIAL IV PRN (13:50)
[2021-01-28] MEDS: SODIUM CHLORIDE 0.9% 250 ML IV PRN (20:30)
[2021-01-28] MEDS: DULoxetine 30 MG CAPSULE PO SCH (21:08)
[2021-01-29 00:31] LABS: Osmolality,Calculated 319.4 MOS/KG (273-304); Potassium 5.9 MMOL/L (3.5-5.1)
[2021-01-29] MEDS ORDERED: INSULIN REGULAR 100 UNIT/ML IV ONE (00:42)
[2021-01-29 02:40] LABS: Basophils % 0.1 % (0.0-0.8); Eosinophils % 0.1 % (0.00-10.9); Hematocrit 27.9 VOL% (42.0-52.0); Hemoglobin 8.3 GM/DL (14.0-18.0); Immature Granulocytes % 0.7 %; Lymphocytes # 0.7 10*3/uL (1.4-4.0); Lymphocytes % 5.2 % (21.2-54.2); Mean Corpuscular HGB Conc 29.7 GM/DL (32-36); Mean Corpuscular Volume 97.2 FL (87-102); Mean Platelet Volume 11.1 FL (9.6-12.0); Monocytes % 3.9 % (1.7-12.7); NRBC # 0.11 10*3/uL; Platelet Count 372 T/CUMM (130-400); Red Blood Count 2.87 MC/CUMM (3.8-5.5); Red Cell Distribution Width 16.2 % (9.3-17.3); White Blood Count 13.6 T/CUMM (4-12)
[2021-01-29] MEDS: MIDODRINE 5 MG TABLET PO SCH ×7 (02:53→21:31)
[2021-01-29 02:55] LABS: Calcium 8.8 MG/DL (8.5-10.1); Osmolality,Calculated 321.7 MOS/KG (273-304); Potassium 5.5 MMOL/L (3.5-5.1)
[2021-01-29 02:59] LABS: Albumin 2.1 G/DL (3.4-5.0); Bilirubin,Direct 0.14 MG/DL (0.0-0.20); Bilirubin,Indirect 0.3 MG/DL (0.0-1.0); Bilirubin,Total 0.4 MG/DL (0.20-1.00); Total Protein 6.3 G/DL (6.4-8.2)
[2021-01-29] MEDS: ALBUTEROL/IPRATROPIUM 3 ML NEB RESP TX SCH ×4 (04:30→19:20)
[2021-01-29] MEDS: PHENYLEPHRINE DRIP 40 MG/250 ML PREMIX IV PRN ×2 (04:30→11:05)
[2021-01-29] MEDS ORDERED: CLINDAMYCIN INJ 900 MG/50 ML PREMIX IV ONE ×2 (07:01→10:27)
[2021-01-29] MEDS ORDERED: BUPIVACAINE MPF 0.25% 30 ML VIAL ONE (09:02)
[2021-01-29] MEDS ORDERED: LIDOCAINE 1% 5 ML VIAL ONE (09:02)
[2021-01-29] MEDS ORDERED: HEPARIN 5,000 UNIT/1 ML VIAL ONE (09:03)
[2021-01-29] MEDS ORDERED: LIDOCAINE 1% 50 ML VIAL ONE (09:25)
[2021-01-29] MEDS ORDERED: LIDOCAINE 1%/EPI INJ 20 ML VIAL ONE (09:28)
[2021-01-29] MEDS: DOBUTamine 500 MG/250 ML PREMIX IV SCH (09:56)
[2021-01-29] MEDS ORDERED: LIDOCAINE 2% 5 ML VIAL ONE (10:21)
[2021-01-29] MEDS ORDERED: SODIUM CHLORIDE 0.9% 250 ML IV ONE (10:21)
[2021-01-29] MEDS ORDERED: propofoL 200 MG/20 ML VIAL IV ONE (10:21)
[2021-01-29] MEDS: INSULIN LISPRO 100 UNIT/ML SUBCUT SCH ×4 (12:03→21:32)
[2021-01-29] MEDS: INSULIN GLARGINE 100 UNIT/ML SUBCUT SCH (12:03)
[2021-01-29] MEDS: APIXABAN 5 MG TABLET PO SCH ×2 (12:04→21:30)
[2021-01-29] MEDS: GABAPENTIN 600 MG TABLET PO SCH ×2 (12:04→21:30)
[2021-01-29] MEDS: PANTOPRAZOLE 40 MG TABLET PO SCH ×2 (12:04→21:31)
[2021-01-29] MEDS: ASPIRIN EC 81 MG TABLET PO SCH (12:04)
[2021-01-29] MEDS: ASCORBIC ACID 500 MG TABLET PO SCH ×2 (12:04→21:31)
[2021-01-29] MEDS: CHLORHEXIDINE 0.12% ORAL RINSE 60 ML BOTTLE SWISH/SPIT SCH ×2 (12:05→21:32)
[2021-01-29] MEDS ORDERED: HEPARIN 10,000 UNIT/10 ML VIAL IV PRN (15:00)
[2021-01-29 17:19] LABS: Albumin 2.1 G/DL (3.4-5.0); Bilirubin,Total 0.5 MG/DL (0.20-1.00); Calcium 9.3 MG/DL (8.5-10.1); Osmolality,Calculated 306.4 MOS/KG (273-304); Potassium 5.2 MMOL/L (3.5-5.1); Total Protein 6.6 G/DL (6.4-8.2)
[2021-01-29] MEDS: SODIUM CHLORIDE 0.9% 1,000 ML IV SCH (19:14)
[2021-01-29] MEDS: DULoxetine 30 MG CAPSULE PO SCH (21:31)
[2021-01-30] MEDS: ALBUTEROL/IPRATROPIUM 3 ML NEB RESP TX SCH ×4 (01:14→19:02)
[2021-01-30] MEDS: PHENYLEPHRINE DRIP 40 MG/250 ML PREMIX IV PRN ×2 (02:33→12:15)
[2021-01-30] MEDS: MIDODRINE 5 MG TABLET PO SCH ×6 (02:57→21:23)
[2021-01-30 05:17] LABS: Basophils % 0.3 % (0.0-0.8); Eosinophils % 0.2 % (0.00-10.9); Hematocrit 28.2 VOL% (42.0-52.0); Hemoglobin 8.5 GM/DL (14.0-18.0); Immature Granulocytes % 1.7 %; Immature Granulocytes Absolute 0.19 #; Lymphocytes # 0.9 10*3/uL (1.4-4.0); Mean Corpuscular HGB Conc 30.1 GM/DL (32-36); Mean Corpuscular Volume 95.9 FL (87-102); Monocytes % 5.7 % (1.7-12.7); Neutrophils % 84.1 % (38.7-73.9); Platelet Count 381 T/CUMM (130-400); Red Blood Count 2.94 MC/CUMM (3.8-5.5); Red Cell Distribution Width 16.3 % (9.3-17.3)
[2021-01-30 05:18] LABS: Bilirubin,Total 0.8 MG/DL (0.20-1.00); Calcium 9.1 MG/DL (8.5-10.1); Osmolality,Calculated 311.4 MOS/KG (273-304); Potassium 5.4 MMOL/L (3.5-5.1); Total Protein 6.2 G/DL (6.4-8.2)
[2021-01-30] MEDS: DOBUTamine 500 MG/250 ML PREMIX IV SCH ×2 (06:59→21:20)
[2021-01-30] MEDS: INSULIN GLARGINE 100 UNIT/ML SUBCUT SCH (09:51)
[2021-01-30] MEDS: PANTOPRAZOLE 40 MG TABLET PO SCH ×2 (09:52→21:25)
[2021-01-30] MEDS: ASCORBIC ACID 500 MG TABLET PO SCH ×2 (09:52→21:25)
[2021-01-30] MEDS: GABAPENTIN 600 MG TABLET PO SCH (09:52)
[2021-01-30] MEDS: CHLORHEXIDINE 0.12% ORAL RINSE 60 ML BOTTLE SWISH/SPIT SCH ×2 (09:52→21:25)
[2021-01-30] MEDS: ASPIRIN EC 81 MG TABLET PO SCH (09:52)
[2021-01-30] MEDS: APIXABAN 5 MG TABLET PO SCH ×2 (09:52→21:23)
[2021-01-30] MEDS: INSULIN LISPRO 100 UNIT/ML SUBCUT SCH ×4 (09:53→21:26)
[2021-01-30] MEDS: SODIUM CHLORIDE 0.9% 1,000 ML IV SCH ×2 (10:05→17:12)
[2021-01-30] MEDS ORDERED: GABAPENTIN 600 MG TABLET PO SCH (21:00)
[2021-01-30] MEDS: DULoxetine 30 MG CAPSULE PO SCH (21:23)
[2021-01-31] MEDS: ALBUTEROL/IPRATROPIUM 3 ML NEB RESP TX SCH ×4 (00:57→18:27)
[2021-01-31] MEDS: PHENYLEPHRINE DRIP 40 MG/250 ML PREMIX IV PRN (03:01)
[2021-01-31] MEDS: MIDODRINE 5 MG TABLET PO SCH ×6 (03:18→21:51)
[2021-01-31 05:11] LABS: Basophils % 0.3 % (0.0-0.8); Eosinophils % 0.2 % (0.00-10.9); Hemoglobin 8.8 GM/DL (14.0-18.0); Immature Granulocytes % 0.8 %; Lymphocytes # 1.2 10*3/uL (1.4-4.0); Lymphocytes % 9.8 % (21.2-54.2); Mean Corpuscular HGB Conc 30.3 GM/DL (32-36); Mean Corpuscular Volume 96.3 FL (87-102); Mean Platelet Volume 10.9 FL (9.6-12.0); Monocytes % 5.9 % (1.7-12.7); NRBC # 0.09 10*3/uL; Platelet Count 454 T/CUMM (130-400); Red Blood Count 3.01 MC/CUMM (3.8-5.5); Red Cell Distribution Width 16.3 % (9.3-17.3); White Blood Count 12.5 T/CUMM (4-12)
[2021-01-31 05:26] LABS: Bilirubin,Total 0.4 MG/DL (0.20-1.00); Calcium 8.9 MG/DL (8.5-10.1); Osmolality,Calculated 301.4 MOS/KG (273-304); Potassium 5.5 MMOL/L (3.5-5.1); Total Protein 6.2 G/DL (6.4-8.2)
[2021-01-31] MEDS: ONDANSETRON 4 MG/2 ML VIAL IV PRN (06:28)
[2021-01-31] MEDS: INSULIN LISPRO 100 UNIT/ML SUBCUT SCH ×4 (09:51→21:59)
[2021-01-31] MEDS: CHLORHEXIDINE 0.12% ORAL RINSE 60 ML BOTTLE SWISH/SPIT SCH ×2 (10:00→21:51)
[2021-01-31] MEDS: ASCORBIC ACID 500 MG TABLET PO SCH ×2 (10:01→21:51)
[2021-01-31] MEDS: ASPIRIN EC 81 MG TABLET PO SCH (10:06)
[2021-01-31] MEDS: APIXABAN 5 MG TABLET PO SCH ×2 (10:06→21:51)
[2021-01-31] MEDS: POLYETHYLENE GLYCOL POWDER 17 GM PACK PO SCH (10:07)
[2021-01-31] MEDS: PANTOPRAZOLE 40 MG TABLET PO SCH ×2 (10:07→21:51)
[2021-01-31] MEDS: INSULIN GLARGINE 100 UNIT/ML SUBCUT SCH (10:08)
[2021-01-31] MEDS ORDERED: ALBUMIN 25% 12.5 GM/50 ML VIAL IV SCH (17:00)
[2021-01-31] MEDS: DULoxetine 30 MG CAPSULE PO SCH (21:51)
[2021-01-31] MEDS: DOBUTamine 500 MG/250 ML PREMIX IV SCH (22:15)
[2021-02-01] MEDS: ALBUTEROL/IPRATROPIUM 3 ML NEB RESP TX SCH ×4 (00:30→18:16)
[2021-02-01] MEDS: MIDODRINE 5 MG TABLET PO SCH ×6 (02:41→21:55)
[2021-02-01] MEDS: SODIUM CHLORIDE 0.9% 1,000 ML IV SCH ×2 (04:04→21:29)
[2021-02-01 05:40] LABS: Calcium 8.5 MG/DL (8.5-10.1); Osmolality,Calculated 293.1 MOS/KG (273-304); Potassium 4.6 MMOL/L (3.5-5.1)
[2021-02-01 05:41] LABS: Basophils % 0.2 % (0.0-0.8); Eosinophils # 0.1 10*3/uL (0.0-0.87); Eosinophils % 0.5 % (0.00-10.9); Hematocrit 26.8 VOL% (42.0-52.0); Hemoglobin 8.1 GM/DL (14.0-18.0); Immature Granulocytes % 0.6 %; Immature Granulocytes Absolute 0.06 #; Lymphocytes # 0.9 10*3/uL (1.4-4.0); Lymphocytes % 9.1 % (21.2-54.2); Mean Corpuscular HGB Conc 30.2 GM/DL (32-36); Mean Corpuscular Volume 97.1 FL (87-102); Mean Platelet Volume 10.9 FL (9.6-12.0); Monocytes % 6.9 % (1.7-12.7); NRBC # 0.04 10*3/uL; Neutrophils % 82.7 % (38.7-73.9); Platelet Count 372 T/CUMM (130-400); Red Blood Count 2.76 MC/CUMM (3.8-5.5); Red Cell Distribution Width 16.4 % (9.3-17.3); White Blood Count 9.5 T/CUMM (4-12)
[2021-02-01] MEDS: INSULIN GLARGINE 100 UNIT/ML SUBCUT SCH (09:30)
[2021-02-01] MEDS: INSULIN LISPRO 100 UNIT/ML SUBCUT SCH ×4 (09:30→21:55)
[2021-02-01] MEDS: POLYETHYLENE GLYCOL POWDER 17 GM PACK PO SCH (09:30)
[2021-02-01] MEDS: PANTOPRAZOLE 40 MG TABLET PO SCH ×2 (09:30→21:55)
[2021-02-01] MEDS: ASPIRIN EC 81 MG TABLET PO SCH (09:30)
[2021-02-01] MEDS: ASCORBIC ACID 500 MG TABLET PO SCH ×2 (09:30→21:55)
[2021-02-01] MEDS: APIXABAN 5 MG TABLET PO SCH ×2 (09:30→21:55)
[2021-02-01] MEDS: CHLORHEXIDINE 0.12% ORAL RINSE 60 ML BOTTLE SWISH/SPIT SCH ×2 (09:30→21:55)
[2021-02-01] MEDS: DULoxetine 30 MG CAPSULE PO SCH (21:55)
[2021-02-01] MEDS: DOBUTamine 500 MG/250 ML PREMIX IV SCH (21:55)
[2021-02-02] MEDS: ALBUTEROL/IPRATROPIUM 3 ML NEB RESP TX SCH ×4 (00:27→19:32)
[2021-02-02] MEDS: MIDODRINE 5 MG TABLET PO SCH ×6 (02:25→21:04)
[2021-02-02 04:52] LABS: Basophils % 0.4 % (0.0-0.8); Eosinophils # 0.1 10*3/uL (0.0-0.87); Eosinophils % 1.1 % (0.00-10.9); Hematocrit 28.4 VOL% (42.0-52.0); Hemoglobin 8.6 GM/DL (14.0-18.0); Immature Granulocytes % 0.6 %; Immature Granulocytes Absolute 0.06 #; Mean Corpuscular HGB Conc 30.3 GM/DL (32-36); Mean Corpuscular Volume 96.9 FL (87-102); Monocytes % 6.6 % (1.7-12.7); NRBC # 0.02 10*3/uL; Neutrophils % 81.3 % (38.7-73.9); Platelet Count 383 T/CUMM (130-400); Red Blood Count 2.93 MC/CUMM (3.8-5.5); Red Cell Distribution Width 15.9 % (9.3-17.3); White Blood Count 9.9 T/CUMM (4-12)
[2021-02-02 05:10] LABS: Calcium 8.7 MG/DL (8.5-10.1); Osmolality,Calculated 298.1 MOS/KG (273-304); Potassium 4.6 MMOL/L (3.5-5.1)
[2021-02-02 06:34] VITALS: BP 130/64
[2021-02-02] MEDS: INSULIN LISPRO 100 UNIT/ML SUBCUT SCH ×4 (07:31→20:30)
[2021-02-02] MEDS: ASCORBIC ACID 500 MG TABLET PO SCH ×2 (08:25→20:31)
[2021-02-02] MEDS: ASPIRIN EC 81 MG TABLET PO SCH (08:25)
[2021-02-02] MEDS: APIXABAN 5 MG TABLET PO SCH ×2 (08:25→20:31)
[2021-02-02] MEDS: CHLORHEXIDINE 0.12% ORAL RINSE 60 ML BOTTLE SWISH/SPIT SCH ×2 (08:26→20:32)
[2021-02-02] MEDS: POLYETHYLENE GLYCOL POWDER 17 GM PACK PO SCH (08:26)
[2021-02-02] MEDS: PANTOPRAZOLE 40 MG TABLET PO SCH ×2 (08:26→20:31)
[2021-02-02] MEDS: INSULIN GLARGINE 100 UNIT/ML SUBCUT SCH (08:26)
[2021-02-02] MEDS: SODIUM CHLORIDE 0.9% 1,000 ML IV SCH (15:35)
[2021-02-02] MEDS: DULoxetine 30 MG CAPSULE PO SCH (20:31)
[2021-02-02] MEDS: DOBUTamine 500 MG/250 ML PREMIX IV SCH (20:52)
[2021-02-03] MEDS: ALBUTEROL/IPRATROPIUM 3 ML NEB RESP TX SCH ×4 (01:00→20:01)
[2021-02-03] MEDS: MIDODRINE 5 MG TABLET PO SCH ×7 (01:42→21:01)
[2021-02-03] MEDS: oxyCODONE/ACETAMINOPHEN 5-325 MG TABLET PO PRN ×2 (03:56→20:54)
[2021-02-03 06:52] LABS: Basophils % 0.3 % (0.0-0.8); Eosinophils # 0.2 10*3/uL (0.0-0.87); Eosinophils % 1.9 % (0.00-10.9); Hematocrit 27.9 VOL% (42.0-52.0); Hemoglobin 8.3 GM/DL (14.0-18.0); Immature Granulocytes % 0.5 %; Immature Granulocytes Absolute 0.05 #; Lymphocytes # 0.9 10*3/uL (1.4-4.0); Lymphocytes % 8.5 % (21.2-54.2); Mean Corpuscular HGB Conc 29.7 GM/DL (32-36); Mean Corpuscular Volume 96.2 FL (87-102); Mean Platelet Volume 10.4 FL (9.6-12.0); Monocytes % 6.7 % (1.7-12.7); Neutrophils % 82.1 % (38.7-73.9); Platelet Count 353 T/CUMM (130-400); White Blood Count 10.4 T/CUMM (4-12)
[2021-02-03 07:06] LABS: Calcium 8.6 MG/DL (8.5-10.1); Osmolality,Calculated 291.1 MOS/KG (273-304); Potassium 4.3 MMOL/L (3.5-5.1)
[2021-02-03] MEDS: ASCORBIC ACID 500 MG TABLET PO SCH ×2 (08:30→20:52)
[2021-02-03] MEDS: APIXABAN 5 MG TABLET PO SCH ×2 (08:30→20:51)
[2021-02-03] MEDS: POLYETHYLENE GLYCOL POWDER 17 GM PACK PO SCH (08:30)
[2021-02-03] MEDS: ASPIRIN EC 81 MG TABLET PO SCH (08:30)
[2021-02-03] MEDS: PANTOPRAZOLE 40 MG TABLET PO SCH ×2 (08:30→20:52)
[2021-02-03] MEDS: CHLORHEXIDINE 0.12% ORAL RINSE 60 ML BOTTLE SWISH/SPIT SCH ×2 (08:31→21:02)
[2021-02-03] MEDS: INSULIN LISPRO 100 UNIT/ML SUBCUT SCH ×4 (08:31→21:03)
[2021-02-03] MEDS: INSULIN GLARGINE 100 UNIT/ML SUBCUT SCH (08:32)
[2021-02-03] MEDS: MAGNESIUM HYDROXIDE SUSP 30 ML UDCUP PO PRN (13:12)
[2021-02-03] MEDS: SODIUM CHLORIDE 0.9% 1,000 ML IV SCH (16:52)
[2021-02-03] MEDS: DULoxetine 30 MG CAPSULE PO SCH (20:51)
[2021-02-03] MEDS: DOBUTamine 500 MG/250 ML PREMIX IV SCH (21:53)
[2021-02-04] MEDS: ALBUTEROL/IPRATROPIUM 3 ML NEB RESP TX SCH ×4 (00:50→19:08)
[2021-02-04] MEDS: MIDODRINE 5 MG TABLET PO SCH ×5 (02:16→18:03)
[2021-02-04] MEDS: SODIUM CHLORIDE 0.9% 1,000 ML IV SCH ×2 (05:03→17:48)
[2021-02-04 06:08] LABS: Basophils # 0.1 10*3/uL (0.0-0.2); Basophils % 0.5 % (0.0-0.8); Eosinophils # 0.2 10*3/uL (0.0-0.87); Eosinophils % 1.7 % (0.00-10.9); Hematocrit 26.6 VOL% (42.0-52.0); Hemoglobin 8.2 GM/DL (14.0-18.0); Immature Granulocytes % 0.4 %; Immature Granulocytes Absolute 0.04 #; Lymphocytes # 0.7 10*3/uL (1.4-4.0); Lymphocytes % 6.7 % (21.2-54.2); Mean Corpuscular HGB Conc 30.8 GM/DL (32-36); Mean Corpuscular Volume 96.7 FL (87-102); Mean Platelet Volume 10.7 FL (9.6-12.0); Monocytes % 6.5 % (1.7-12.7); Neutrophils % 84.2 % (38.7-73.9); Platelet Count 329 T/CUMM (130-400); Red Blood Count 2.75 MC/CUMM (3.8-5.5); Red Cell Distribution Width 15.9 % (9.3-17.3); White Blood Count 10.2 T/CUMM (4-12)
[2021-02-04 06:25] LABS: Calcium 9.1 MG/DL (8.5-10.1); Potassium 4.5 MMOL/L (3.5-5.1)
[2021-02-04] MEDS: INSULIN LISPRO 100 UNIT/ML SUBCUT SCH ×4 (07:59→21:46)
[2021-02-04] MEDS: INSULIN GLARGINE 100 UNIT/ML SUBCUT SCH (08:00)
[2021-02-04] MEDS: ASCORBIC ACID 500 MG TABLET PO SCH ×2 (08:00→21:36)
[2021-02-04] MEDS: ASPIRIN EC 81 MG TABLET PO SCH (08:01)
[2021-02-04] MEDS: APIXABAN 5 MG TABLET PO SCH ×2 (08:01→21:36)
[2021-02-04] MEDS: POLYETHYLENE GLYCOL POWDER 17 GM PACK PO SCH (08:01)
[2021-02-04] MEDS: PANTOPRAZOLE 40 MG TABLET PO SCH ×2 (08:01→21:37)
[2021-02-04] MEDS: MAGNESIUM HYDROXIDE SUSP 30 ML UDCUP PO PRN (08:01)
[2021-02-04] MEDS: CHLORHEXIDINE 0.12% ORAL RINSE 60 ML BOTTLE SWISH/SPIT SCH ×2 (08:17→21:38)
[2021-02-04] MEDS ORDERED: SODIUM PHOSPHATE ENEMA 133 ML BOTTLE RECTAL ONE (11:48)
[2021-02-04] MEDS: DOBUTamine 500 MG/250 ML PREMIX IV SCH (20:42)
[2021-02-04] MEDS: DULoxetine 30 MG CAPSULE PO SCH (21:37)
[2021-02-04] MEDS ORDERED: AMIODARONE INJ 100 MG in DEXTROSE 5% 100 ML IV ONE (22:51)
[2021-02-04] MEDS ORDERED: AMIODARONE INJ 450 MG in DEXTROSE 5% 241 ML IV SCH (23:00)
[2021-02-05] MEDS: ALBUTEROL/IPRATROPIUM 3 ML NEB RESP TX SCH ×4 (00:08→20:26)
[2021-02-05] MEDS: MIDODRINE 5 MG TABLET PO SCH ×7 (00:40→21:18)
[2021-02-05 06:00] LABS: Basophils % 0.4 % (0.0-0.8); Eosinophils # 0.1 10*3/uL (0.0-0.87); Eosinophils % 1.2 % (0.00-10.9); Hematocrit 27.5 VOL% (42.0-52.0); Hemoglobin 8.3 GM/DL (14.0-18.0); Immature Granulocytes % 0.6 %; Immature Granulocytes Absolute 0.06 #; Lymphocytes # 0.7 10*3/uL (1.4-4.0); Lymphocytes % 6.3 % (21.2-54.2); Mean Corpuscular HGB Conc 30.2 GM/DL (32-36); Mean Corpuscular Volume 95.2 FL (87-102); Mean Platelet Volume 10.8 FL (9.6-12.0); Neutrophils % 84.5 % (38.7-73.9); Platelet Count 343 T/CUMM (130-400); Red Blood Count 2.89 MC/CUMM (3.8-5.5); Red Cell Distribution Width 15.7 % (9.3-17.3); White Blood Count 10.6 T/CUMM (4-12)
[2021-02-05 06:23] LABS: Albumin 1.9 G/DL (3.4-5.0); Bilirubin,Total 0.8 MG/DL (0.20-1.00); Calcium 9.3 MG/DL (8.5-10.1); Osmolality,Calculated 297.4 MOS/KG (273-304); Total Protein 6.4 G/DL (6.4-8.2)
[2021-02-05] MEDS: DILTIAZEM INJ 100 MG in SODIUM CHLORIDE 0.9% 100 ML IV SCH (07:17)
[2021-02-05] MEDS ORDERED: DIGOXIN 0.5 MG/2 ML AMP IV ONE (07:37)
[2021-02-05] MEDS: INSULIN LISPRO 100 UNIT/ML SUBCUT SCH ×4 (08:17→20:40)
[2021-02-05] MEDS: INSULIN GLARGINE 100 UNIT/ML SUBCUT SCH (08:19)
[2021-02-05] MEDS: ASPIRIN EC 81 MG TABLET PO SCH (08:20)
[2021-02-05] MEDS: PANTOPRAZOLE 40 MG TABLET PO SCH ×2 (08:20→21:18)
[2021-02-05] MEDS: APIXABAN 5 MG TABLET PO SCH ×2 (08:20→21:17)
[2021-02-05] MEDS: ASCORBIC ACID 500 MG TABLET PO SCH ×2 (08:20→21:17)
[2021-02-05] MEDS: POLYETHYLENE GLYCOL POWDER 17 GM PACK PO SCH (08:21)
[2021-02-05] MEDS: AMIODARONE 200 MG TABLET PO SCH ×3 (08:27→08:34)
[2021-02-05] MEDS: CHLORHEXIDINE 0.12% ORAL RINSE 60 ML BOTTLE SWISH/SPIT SCH ×2 (08:34→21:21)
[2021-02-05] MEDS ORDERED: ROSUVASTATIN 20 MG TABLET PO SCH (21:00)
[2021-02-05] MEDS: DULoxetine 30 MG CAPSULE PO SCH (21:17)
[2021-02-05] MEDS: DOBUTamine 500 MG/250 ML PREMIX IV SCH (22:41)
[2021-02-06] MEDS: ALBUTEROL/IPRATROPIUM 3 ML NEB RESP TX SCH ×2 (01:30→07:03)
[2021-02-06] MEDS: MIDODRINE 5 MG TABLET PO SCH ×3 (03:12→10:43)
[2021-02-06] MEDS: ONDANSETRON 4 MG/2 ML VIAL IV PRN (03:55)
[2021-02-06 05:44] LABS: Basophils # 0.1 10*3/uL (0.0-0.2); Basophils % 0.5 % (0.0-0.8); Eosinophils # 0.1 10*3/uL (0.0-0.87); Eosinophils % 0.8 % (0.00-10.9); Hematocrit 27.4 VOL% (42.0-52.0); Immature Granulocytes % 0.6 %; Immature Granulocytes Absolute 0.06 #; Lymphocytes # 0.7 10*3/uL (1.4-4.0); Lymphocytes % 6.7 % (21.2-54.2); Mean Corpuscular HGB Conc 29.2 GM/DL (32-36); Mean Corpuscular Volume 95.5 FL (87-102); Mean Platelet Volume 10.5 FL (9.6-12.0); Monocytes % 6.4 % (1.7-12.7); NRBC # 0.02 10*3/uL; Platelet Count 318 T/CUMM (130-400); Red Blood Count 2.87 MC/CUMM (3.8-5.5); Red Cell Distribution Width 15.8 % (9.3-17.3); White Blood Count 9.8 T/CUMM (4-12)
[2021-02-06 06:03] LABS: Calcium 8.9 MG/DL (8.5-10.1); Osmolality,Calculated 290.1 MOS/KG (273-304); Potassium 4.5 MMOL/L (3.5-5.1)
[2021-02-06 06:12] LABS: Anisocytosis 2+; Macrocytosis 1+; Platelet Estimate Normal; Target Cells Few; Tear Drop Cells Few
[2021-02-06] MEDS: DILTIAZEM INJ 100 MG in SODIUM CHLORIDE 0.9% 100 ML IV SCH (07:10)
[2021-02-06] MEDS: INSULIN LISPRO 100 UNIT/ML SUBCUT SCH (08:20)
[2021-02-06] MEDS: ASCORBIC ACID 500 MG TABLET PO SCH (08:21)
[2021-02-06] MEDS: INSULIN GLARGINE 100 UNIT/ML SUBCUT SCH (08:21)
[2021-02-06] MEDS: APIXABAN 5 MG TABLET PO SCH (08:22)
[2021-02-06] MEDS: ASPIRIN EC 81 MG TABLET PO SCH (08:22)
[2021-02-06] MEDS: AMIODARONE 200 MG TABLET PO SCH (08:23)
[2021-02-06] MEDS: CHLORHEXIDINE 0.12% ORAL RINSE 60 ML BOTTLE SWISH/SPIT SCH (08:23)
[2021-02-06] MEDS: POLYETHYLENE GLYCOL POWDER 17 GM PACK PO SCH (08:23)
[2021-02-06] MEDS: PANTOPRAZOLE 40 MG TABLET PO SCH (08:23)
[2021-02-06] MEDS ORDERED: DIGOXIN 0.5 MG/2 ML AMP IV ONE (09:13)
[2021-02-06] MEDS ORDERED: DIGOXIN 0.125 MG TABLET PO SCH (13:00)
== END 2021-02-06 12:10 | DRG 235 ==
LOC: N.2W 01-15 09:15 → N.CVR 01-16 08:59 → N.ICU 01-18 07:57